=== PATIENT | male | born 1935 | race Caucasian/White ===

== ENCOUNTER 2018-08-28 04:21 | Emergency (ER) | payer MEDICARE, BC ==
[2018-08-28 04:43] VITALS: RESP 16
[2018-08-28] MEDS ORDERED: ALBUTEROL NEBULIZED 2.5 MG/3 ML INHALATION STA (05:33)
[2018-08-28 05:34] LABS: Basophils % (A) 0 %; Eosinophils # (A) 0.4 k/uL (0-0.7); Eosinophils % (A) 7 %; HCT 38.6 % (39.0-53.0); HGB 12.8 gm/dL (13.0-17.5); Lymphocytes # (A) 1.2 k/uL (1.0-4.8); Lymphocytes % (A) 21 %; MCH 29.6 pg (25.0-35.0); MCHC 33.3 g/dL (31.0-37.0); Mean Platelet Volume 7.4; Monocytes # (A) 0.4 k/uL (0-1.0); Monocytes % (A) 7 %; Neutrophils # (A) 3.4 k/uL (1.3-7.7); Neutrophils % (A) 62 %; Platelet Count 164 k/uL (150-450); RBC 4.33 m/uL (4.30-5.90); RDW 15.4 % (11.5-15.5); WBC 5.5 k/uL (3.8-10.6)
[2018-08-28 05:44] LABS: INR 1.4 (<1.2); Partial Thromboplastin Time 26.8 sec (22.0-30.0); Prothrombin Time 14.1 sec (9.0-12.0)
[2018-08-28 05:55] LABS: Anion Gap 9 mmol/L; Blood Urea Nitrogen 11 mg/dL (9-20); Calcium 9.3 mg/dL (8.4-10.2); Carbon Dioxide 23 mmol/L (22-30); Chloride 103 mmol/L (98-107); Glucose 104 mg/dL (74-99); Potassium 4.3 mmol/L (3.5-5.1); Sodium 135 mmol/L (137-145)
--- NOTE | 2018-08-28 06:04 | XR ---
EXAMINATION TYPE: XR chest 2V DATE OF EXAM: 08/28/2018 COMPARISON: NONE HISTORY: Cough TECHNIQUE: Frontal and lateral views of the chest are obtained. FINDINGS: There is elevated right diaphragm. There is coarse linear density in the right midlung. Th oracic aorta is atheromatous. There is no heart failure. There is no pleural effusion. IMPRESSION: There is some atelectasis and scarring in the right upper lobe. No heart failure.
--- NOTE | 2018-08-28 06:35 | ED ---
ENT HPI - General Chief complaint: ENT Stated complaint: URI, coughing up blood Time Seen by Provider: 08/28/18 04:53 Source: patient Mode of arrival: ambulatory Limitations: no limitations - History of Present Illness MD complaint: epistaxis -: minutes(s) Location: nose Severity: mild Consistency: now resolved Improves with: none Worsens with: none Context-Epistaxis: warfarin use - Related Data Previous Rx's Medication Instructions Recorded Albuterol Inhaler [Ventolin Hfa 1 - 2 puff INHALATION Q6HR PRN #1 08/28/18 Inhaler] inhaler Allergies Allergy/AdvReac Type Severity Reaction Status Date / Time Sulfa (Sulfonamide Allergy Rash/Hives Verified 08/28/18 05:00 Antibiotics) Review of Systems ROS Statement: Those systems with pertinent positive or pertinent negative responses have been documented in the HPI. ROS Other: All systems not noted in ROS Statement are negative. Constitutional: Denies: fever, chills, weakness Respiratory: Reports: cough, wheezes. Denies: dyspnea, hemoptysis Cardiovascular: Denies: chest pain, palpitations, dyspnea on exertion Gastrointestinal: Denies: abdominal pain, vomiting, diarrhea Genitourinary: Denies: dysuria Musculoskeletal: Denies: back pain Skin: Denies: rash Neurological: Denies: headache Past Medical History Past Medical History: Atrial Fibrillation, Hyperlipidemia, Hypertension Past Surgical History: Orthopedic Surgery Smoking Status: Never smoker Past Alcohol Use History: None Reported Past Drug Use History: None Reported General Exam Limitations: no limitations General appearance: alert, in no apparent distress Head exam: Present: atraumatic, normocephalic Eye exam: Present: normal appearance. Absent: scleral icterus, conjunctival injection Respiratory exam: Present: wheezes. Absent: respiratory distress, rales, rhonchi, stridor Cardiovascular Exam: Present: regular rate, normal rhythm, normal heart sounds. Absent: systolic murmur, diastolic murmur, rubs, gallop GI/Abdominal exam: Present: soft. Absent: distended, tenderness, guarding, rebound, mass Extremities exam: Present: normal inspection, normal capillary refill. Absent: pedal edema, calf tenderness Neurological exam: Present: alert Skin exam: Present: warm, dry, intact, normal color. Absent: rash Course Vital Signs 08/28/18 08/28/18 08/28/18 04:37 06:02 06:14 Temperature 97.5 F L Pulse Rate 56 L 64 60 Respiratory 16 Rate Blood Pressure 150/79 O2 Sat by Pulse 98 Oximetry 08/28/18 08/28/18 06:37 06:42 Temperature 97.7 F Pulse Rate 56 L 56 L Respiratory 16 16 Rate Blood Pressure 156/89 O2 Sat by Pulse 100 97 Oximetry Medical Decision Making - Lab Data Result diagrams: 08/28/18 05:07 08/28/18 05:07 Lab Results 08/28/18 08/28/18 08/28/18 Range/Units 05:07 05:07 05:07 WBC 5.5 (3.8-10.6) k/uL RBC 4.33 (4.30-5.90) m/uL Hgb 12.8 L (13.0-17.5) gm/dL Hct 38.6 L (39.0-53.0) % MCV 89.0 (80.0-100.0) fL MCH 29.6 (25.0-35.0) pg MCHC 33.3 (31.0-37.0) g/dL RDW 15.4 (11.5-15.5) % Plt Count 164 (150-450) k/uL Neutrophils % 62 % Lymphocytes % 21 % Monocytes % 7 % Eosinophils % 7 % Basophils % 0 % Neutrophils # 3.4 (1.3-7.7) k/uL Lymphocytes # 1.2 (1.0-4.8) k/uL Monocytes # 0.4 (0-1.0) k/uL Eosinophils # 0.4 (0-0.7) k/uL Basophils # 0.0 (0-0.2) k/uL PT 14.1 H (9.0-12.0) sec INR 1.4 H (<1.2) APTT 26.8 (22.0-30.0) sec Sodium 135 L (137-145) mmol/L Potassium 4.3 (3.5-5.1) mmol/L Chloride 103 (98-107) mmol/L Carbon Dioxide 23 (22-30) mmol/L Anion Gap 9 mmol/L BUN 11 (9-20) mg/dL Creatinine 0.76 (0.66-1.25) mg/dL Est GFR (CKD-EPI)AfAm >90 (>60 ml/min/1.73 sqM) Est GFR (CKD-EPI)NonAf 85 (>60 ml/min/1.73 sqM) Glucose 104 H (74-99) mg/dL Calcium 9.3 (8.4-10.2) mg/dL NT-Pro-B Natriuret Pep pg/mL 08/28/18 Range/Units 05:07 WBC (3.8-10.6) k/uL RBC (4.30-5.90) m/uL Hgb (13.0-17.5) gm/dL Hct (39.0-53.0) % MCV (80.0-100.0) fL MCH (25.0-35.0) pg MCHC (31.0-37.0) g/dL RDW (11.5-15.5) % Plt Count (150-450) k/uL Neutrophils % % Lymphocytes % % Monocytes % % Eosinophils % % Basophils % % Neutrophils # (1.3-7.7) k/uL Lymphocytes # (1.0-4.8) k/uL Monocytes # (0-1.0) k/uL Eosinophils # (0-0.7) k/uL Basophils # (0-0.2) k/uL PT (9.0-12.0) sec INR (<1.2) APTT (22.0-30.0) sec Sodium (137-145) mmol/L Potassium (3.5-5.1) mmol/L Chloride (98-107) mmol/L Carbon Dioxide (22-30) mmol/L Anion Gap mmol/L BUN (9-20) mg/dL Creatinine (0.66-1.25) mg/dL Est GFR (CKD-EPI)AfAm (>60 ml/min/1.73 sqM) Est GFR (CKD-EPI)NonAf (>60 ml/min/1.73 sqM) Glucose (74-99) mg/dL Calcium (8.4-10.2) mg/dL NT-Pro-B Natriuret Pep 989 pg/mL Disposition Clinical Impression: Epistaxis, Bronchitis Disposition: HOME SELF-CARE Condition: Good Instructions: Nosebleed (ED), Acute Bronchitis (ED) Prescriptions: Albuterol Inhaler [Ventolin Hfa Inhaler] 1 - 2 puff INHALATION Q6HR PRN #1 inhaler PRN Reason: Wheezing Is patient prescribed a controlled substance at d/c from ED?: No Referrals: Norris Gaytan MD [Primary Care Provider] - 1-2 days Samy Macias DO [Doctor of Osteopathic Medicine] - 1-2 days
[2018-08-28 06:42] VITALS: PULSE 56; TEMP 97.7
[2018-08-28 06:43] VITALS: BP 156/89
== END 2018-08-28 07:08 | disposition home or self-care (01) ==
LOC: EC 04:21
DX: R04.2 Hemoptysis (principal); J40 Bronchitis, not specified as acute or chronic; I48.91 Unspecified atrial fibrillation; Z79.01 Long term (current) use of anticoagulants; Z88.2 Allergy status to sulfonamides
CPT/HCPCS: 36415; 71046; 80048; 83880; 85025; 85610; 85730; 94640; 99284

== ENCOUNTER → 2020-11-11 | Outpatient (CLI) | payer MEDICARE, BC ==
--- NOTE | 2020-11-11 18:57 | US ---
EXAMINATION TYPE: US kidneys/renal and bladder DATE OF EXAM: 11/11/2020 COMPARISON: NONE CLINICAL HISTORY: N28.1 Cyst of kidney, acquired. Pt states outside MRI showed possible right renal c yst EXAM MEASUREMENTS: Right Kidney: 11.7 x 5.8 x 5.5 cm Left Kidney: 11.8 x 4.9 x 5.6 cm Right Kidney: Cyst lateral= 2.6 x 2.2 x 2.2 cm, echogenic foci mid= 0.6 cm/ ?dilated renal pelvis vs. parapelvic cyst= 2.0 cm Left Kidney: Probable cyst lateral= 1.2 x 1.3 x 0.7cm/ echogenic foci mid= 0.7 cm/ ill-defined area s uperior pole= 3.0 x 2.7 x 2.8 cm ?lobulation vs. Mass Bladder: wnl Bilateral Jets seen: No IMPRESSION: 1. There is mild right hydronephrosis with 6 mm right renal calculus. 2.6 cm right renal cyst. 2. There is a 7 mm left renal cyst with ill-defined areas along the upper pole measuring [address] scan to exclude neoplasm.
== END ==
LOC: RADUSWWP 15:32
PROVIDERS: ATTEND Internal Medicine
DX: N13.2 Hydronephrosis with renal and ureteral calculous obstruction (principal); N28.1 Cyst of kidney, acquired
CPT/HCPCS: 76770

== ENCOUNTER → 2020-11-29 | Outpatient (CLI) | payer MEDICARE, BC ==
--- NOTE | 2020-11-29 14:46 | CT ---
EXAMINATION TYPE: CT abdomen pelvis wo con DATE OF EXAM: 11/29/2020 COMPARISON: Ultrasound 11/11/2020 INDICATION: Kidney disorder DLP: 419.7 mGycm, Automated exposure control for dose reduction was used. CONTRAST: None Study performed without Oral Contrast TECHNIQUE: Axial images were obtained from above the diaphragm to the pubic rami in the axial plane a t 5 mm thick sections. Reconstructed images are reviewed on the computer in the coronal plane. FINDINGS: Limited CT sections are obtained the lung bases. The lung bases are clear. Dense calcifications thr ough the coronary vessels visualized. CT ABDOMEN: Liver: Normal Spleen: Normal Pancreas: Normal Adrenal glands: The adrenal glands are normal. Gallbladder: Normal Kidneys: No masses are evident. No suspicious mass in the left upper pole correspond ultrasound findi ngs is evident. No hydronephrosis is present. There is an extrarenal pelvis on the right. Couple of cortical renal cysts are present. Delayed images were obtained through the kidneys, which remain unr emarkable. Aorta: Vascular calcification is within the aorta. Inferior vena cava: Normal. CT PELVIS: Loops of bowel within the abdomen and pelvis are normal. There are loops of bowel which are incom pletely distended or lack oral contrast limiting their evaluation. Appendix: Normal as visualized. Urinary bladder: Normal Genitourinary structures: Prostate is very prominent. Osseous structures: No suspicious lytic or sclerotic lesions. IMPRESSIONS: 1. Couple of cortical renal cysts present bilaterally. No suspicious renal masses 2. Very prominent prostate.
== END | disposition home or self-care (01) ==
LOC: RADCTMAIN 10:39
PROVIDERS: ATTEND Internal Medicine
DX: N28.1 Cyst of kidney, acquired (principal)
CPT/HCPCS: 74176

== ENCOUNTER → 2021-03-21 | Outpatient (CLI) | payer MEDICARE, BC ==
[2021-03-21 13:48] LABS: Basophils % (A) 1 %; Eosinophils # (A) 0.2 k/uL (0-0.7); Eosinophils % (A) 3 %; HGB 8.9 gm/dL (13.0-17.5); Hypochromasia Marked; Lymphocytes % (A) 18 %; MCH 26.4 pg (25.0-35.0); MCHC 30.6 g/dL (31.0-37.0); MCV 86.4 fL (80.0-100.0); Mean Platelet Volume 7.9; Monocytes # (A) 0.4 k/uL (0-1.0); Monocytes % (A) 7 %; Neutrophils # (A) 3.5 k/uL (1.3-7.7); Neutrophils % (A) 67 %; Platelet Count 240 k/uL (150-450); RBC 3.36 m/uL (4.30-5.90); RDW 15.1 % (11.5-15.5); WBC 5.2 k/uL (3.8-10.6)
[2021-03-22 02:10] LABS: % Iron Saturation 3.63 (15.00-50.00); Ferritin 9.6 ng/mL (22.0-322.0); Folate, Serum >24.0 ng/mL; Iron 16 ug/dL (65-175); Total Iron Binding Capacity 441 ug/dL (228-460)
== END | disposition home or self-care (01) ==
LOC: LABWHC1 12:30
PROVIDERS: ATTEND Internal Medicine
DX: D64.9 Anemia, unspecified (principal)
CPT/HCPCS: 36415; 82607; 82728; 82746; 83540; 83550; 85025

== ENCOUNTER 2021-04-14 09:44 | Day surgery (SDC) | payer MEDICARE, BC ==
[2021-04-12 10:37] VITALS: BMI 24.3
[~2021-04-14 09:44] MED LIST: LACTATED RINGERS 1,000 ML IV SCH; LIDOCAINE 1% (10MG/ML) FOR IV START INTRADERMA PRN
[2021-04-14 10:09] VITALS: TEMP 97.9
[2021-04-14] MEDS ORDERED: LIDOCAINE 1% INJ 10MG/ML (20 ML MDV) ONE (11:33)
[2021-04-14] MEDS ORDERED: PROPOFOL 10 MG/ML 20 ML VIAL IV ONE (11:33)
--- NOTE | 2021-04-14 11:58 | P.PCN ---
Date of Procedure: 04/14/21 Procedure(s) Performed: Brief history: Patient is a pleasant 85-year-old white male scheduled for an elective upper endoscopy as well as colonoscopy as a part of evaluation of iron deficiency anemia. He has history of A. fib and cardiac Coumadin which is on hold for the last 6 days. Last hemoglobin was 8.9 g/dL he was also noted to have a Hemoccult-positive stool. Last colonoscopy was 10 years ago. Procedure performed: Esophagogastroduodenoscopy with biopsy Colonoscopy with biopsy and tattooing with Fiona ink Preoperative diagnosis: Iron deficiency anemia and Hemoccult-positive stool Anest[place]: [facility] [place] Procedure: After informed consent was obtained from the patient was brought into the endoscopy unit and IV sedation was administered by anesthesia under continuous monitoring. Initially upper endoscopy was done. The Olympus GF 160 video endoscope was inserted inserted into the mouth and esophagus intubated without any difficulty and was gradually advanced into the stomach and duodenum and carefully examined. The bulb and second part of the duodenum appeared normal. Biopsies were done from the duodenum to rule out celiac disease The scope was then withdrawn into the stomach adequately insufflated with air and upon careful examination the antrum had mild gastritis and biopsies were done from this area. Thed body, cardia and fundus appeared normal. The scope was then withdrawn into the esophagus. The GE junction was located at 40 cm to the incisors. It appeared regular with superficial erosions consistent with LA grade B reflux esophagitis Rest of the esophagus appeared normal. Patient tolerated the procedure well. At this time the patient continued to remain sedation. Initial digital rectal examination was normal. Olympus CF 160 video colonoscope was then inserted into the rectum and gradually advanced to the cecum without any difficulty. Careful examination was performed as the scope was gradually being withdrawn. The prep was excellent. The cecum, ascending colon, appeared normal. In the hepatic flexure there was a 3 cm broad-based polypoid mass suspicious for neoplasm and multiple biopsies were obtained from this area. Following this tattooing was performed with Fiona ink. Mucosa of the transverse colon, descending colon, sigmoid colon and rectum appeared normal. Retroflexion was performed in the rectum and small internal hemorrhoids were noted. Scattered sigmoid diverticula seen. Patient tolerated the procedure well. Impression: 1. Upper endoscopy revealed mild antral gastritis and LA grade A reflux esophagitis 2. Colonoscopy revealed 3 cm broad-based polypoid mass in the hepatic flexure status post multiple biopsies followed by tattooing with Fiona ink. Small internal hemorrhoids and scattered sigmoid diverticulosis seen. Recommendations: Findings of this examination were discussed with the patient as well as his family. He was advised to follow with the biopsy results. he will resume Coumadin today. He was advised to follow with the biopsy results. He'll be seen in office in 4-5 days. The meantime he'll be scheduled for a CT of the abdomen and pelvis before obtaining surgical consultation.
[2021-04-14 12:04] VITALS: RESP 16
[2021-04-14 12:17] VITALS: BP 152/84; PULSE 73
== END 2021-04-14 12:15 | disposition home or self-care (01) ==
LOC: ORWHC2ENDO 09:44
PROVIDERS: ATTEND Internal Medicine Gastroenterology
DX: K29.50 Unspecified chronic gastritis without bleeding (principal); K21.00 Gastro-esophageal reflux disease with esophagitis, without bleeding; K64.8 Other hemorrhoids; K57.30 Diverticulosis of large intestine without perforation or abscess without bleeding; I48.91 Unspecified atrial fibrillation; I25.10 Atherosclerotic heart disease of native coronary artery without angina pectoris; I25.2 Old myocardial infarction; E78.5 Hyperlipidemia, unspecified; Z95.818 Presence of other cardiac implants and grafts
CPT/HCPCS: 45380; 43239; 44404; 88305; J2001; J2704

== ENCOUNTER → 2021-04-17 | Outpatient (CLI) | payer MEDICARE, BC ==
[2021-04-17 13:37] LABS: African American GFR (CKD) >90 (>60 ml/min/1.73 sqM); Blood Urea Nitrogen 6 mg/dL (9-20); Non-African American GFR(CKD) 85 (>60 ml/min/1.73 sqM)
--- NOTE | 2021-04-17 15:30 | CT ---
EXAMINATION TYPE: CT ChestAbdPelvis w con DATE OF EXAM: 04/17/2021 COMPARISON: 11/29/2020 HISTORY: Abnormal colonscopy. CT DLP: 728.6 mGycm Automated exposure control for dose reduction was used. CONTRAST: CT scan of the chest, abdomen and pelvis is performed with Oral Contrast and with IV Contrast, patien t injected with 100ml mL of Isovue 300. FINDINGS: LUNGS: There is a 3 mm right apical pleural-based nodule likely benign. Subsegmental changes are seen involving the lungs and there is 3 vague 3 mm nodules in the anterior segment right upper lobe most likely post.. Additional areas of subsegmental consolidation are seen bilaterally with a localized ar ea of bronchiectasis involving the anterior segment of the right upper lobe. No sizable pleural effus ion or pneumothorax. MEDIASTINUM: Heart is enlarged and there is dense coronary artery calcification. Shotty adenopathy in the mediastinum and hilum bilaterally with no pathologic adenopathy. Aorta of normal caliber. OTHER: No additional significant abnormality is seen. LIVER/GB: Stable hepatic calcifications may be vascular. PANCREAS: No significant abnormality is seen. SPLEEN: No significant abnormality is seen. ADRENALS: No significant abnormality is seen. KIDNEYS: Multiple hypodensities within the kidneys bilaterally likely related to simple cysts. Extrar enal pelvis noted bilaterally stable from prior exam. BOWEL: Changes of diverticulosis. ASSESSMENT: Somewhat limited due to lack of significant oral contrast. There is soft tissue fullness involving the right colon proximal to the hepatic flexure. LYMPH NODES: No greater than 1 cm abdominal or pelvic lymph nodes are appreciated. OSSEOUS STRUCTURES: Hypertrophic and degenerative changes of the spine severe multilevel degenerative disc disease and scoliotic curvature. OTHER: Prostate is markedly enlarged. Suggestion of previous hernia repair surgery involving the left inguinal canal. IMPRESSION: 1. Soft tissue fullness involving the right colon correlate for colonic neoplasm. No pathologic adeno bubba. 2. Bilateral suspected renal cysts. 3. Multiple sub-5 mm nodules within the lungs are most likely postinflammatory. Subsegmental areas of consolidation most typical of atelectasis
== END | disposition home or self-care (01) ==
LOC: RADCTMAIN 11:32
PROVIDERS: ATTEND Internal Medicine Gastroenterology
DX: R91.8 Other nonspecific abnormal finding of lung field (principal); J98.4 Other disorders of lung; R93.3 Abnormal findings on diagnostic imaging of other parts of digestive tract
CPT/HCPCS: 82565; 84520; 71260; 74177; 36415; Q9967

== ENCOUNTER → 2021-04-25 | Outpatient (CLI) | payer MEDICARE, BC ==
[2021-04-25 12:39] LABS: Anisocytosis Slight; HGB 10.8 gm/dL (13.0-17.5); Hypochromasia Marked; MCHC 31.6 g/dL (31.0-37.0); MCV 88.5 fL (80.0-100.0); Platelet Count 212 k/uL (150-450); RBC 3.84 m/uL (4.30-5.90); RDW 18.4 % (11.5-15.5); WBC 6.1 k/uL (3.8-10.6)
[2021-04-25 12:42] LABS: Potassium 4.4 mmol/L (3.5-5.1)
== END | disposition home or self-care (01) ==
LOC: LABPAT 11:34
PROVIDERS: ATTEND Surgery
DX: Z01.812 Encounter for preprocedural laboratory examination (principal); C18.9 Malignant neoplasm of colon, unspecified
CPT/HCPCS: 36415; 80051; 85027

== ENCOUNTER 2021-05-01 09:50 | Inpatient (IN) | payer MEDICARE, BC ==
[2021-04-26 10:41] VITALS: BMI 24.3
--- NOTE | 2021-05-01 08:50 | P.HPADDEND ---
H&P Addendum H&P Addendum Date: 05/01/21 Patient scheduled today for elective da Mauricio assisted laparoscopic right colectomy, possible open. 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 He is cleared for surgery with moderate risk. Discussed open versus laparoscopic approaches and the anticipated duration of surgery along with the insufflation required with laparoscopy and either approach was felt to be reasonable for his elementary school librarian.
[~2021-05-01 09:50] MED LIST changes: +ACETAMINOPHEN TAB 500 MG TAB PO PRN; +HEPARIN SODIUM,PORCINE/PF 5,000 UNIT/0.5 ML SYRINGE SQ PRN; -LACTATED RINGERS 1,000 ML IV SCH; -LIDOCAINE 1% (10MG/ML) FOR IV START INTRADERMA PRN; +ONDANSETRON 4 MG/2 ML VIAL IVP ONE; +metroNIDAZOLE-NS PMX 500 MG in SALINE 1 100ML.BAG IVPB PRN
[2021-05-01] MEDS: LACTATED RINGERS 1,000 ML IV SCH ×2 (10:45→23:55)
[2021-05-01] MEDS ORDERED: ALVIMOPAN 12 MG CAPSULE PO ONE (10:45)
[2021-05-01] MEDS ORDERED: DEXAMETHASONE SOD PHOSPHATE 4 MG/ML 1 ML VIAL IV ONE (10:50)
[2021-05-01 11:05] LABS: INR 1.2 (<1.2); Prothrombin Time 12.2 sec (9.0-12.0)
[2021-05-01] MEDS ORDERED: GLYCOPYRROLATE 0.2 MG/ML 2 ML VIAL ONE (12:32)
[2021-05-01] MEDS ORDERED: PROPOFOL 10 MG/ML 20 ML VIAL IV ONE (12:32)
[2021-05-01] MEDS ORDERED: fentaNYL (PF) 50 MCG/ML 2 ML AMP ONE (12:32)
[2021-05-01] MEDS ORDERED: NEOSTIGMINE 1 MG/ML 10 ML VIAL ONE (12:32)
[2021-05-01] MEDS ORDERED: SUCCINYLCHOLINE CHLORIDE 100 MG/5 ML SYR IV ONE (12:32)
[2021-05-01] MEDS ORDERED: LIDOCAINE 1% INJ 10MG/ML (20 ML MDV) ONE (12:32)
[2021-05-01] MEDS ORDERED: ROCURONIUM 10 MG/ML (5 ML VIAL) IV ONE (12:32)
[2021-05-01] MEDS ORDERED: ePHEDrine SULFATE/0.9% NACL/PF 50 MG/5 ML SYRINGE IV ONE (12:32)
[2021-05-01] MEDS ORDERED: LIDOCAINE 1% INJ 10MG/ML (20 ML MDV) SQ ONE (13:25)
[2021-05-01] MEDS ORDERED: LACTATED RINGERS 1,000 ML IV ONE ×2 (15:03→16:27)
[2021-05-01] MEDS ORDERED: BENZOCAINE/MENTHOL LOZENG 1 EACH LOZENGE MUCOUS MEM PRN (16:40)
[2021-05-01] MEDS ORDERED: ONDANSETRON 4 MG/2 ML VIAL IVP PRN (16:40)
--- NOTE | 2021-05-01 16:45 | P.OP ---
Date of Procedure: 05/01/21 Procedure(s) Performed: PREOPERATIVE DIAGNOSIS: Right-sided colon cancer POSTOPERATIVE DIAGNOSIS: Same PROCEDURE: Laparoscopic da Mauricio assisted right colectomy with intracorporeal anastomosis SURGEON: Stan EBL: Minimal see anesthesia records ANESTHESIA: General COMPLICATIONS: None OPERATIVE PROCEDURE: Patient was placed on the operating table in the supine position. The patient was placed under general anesthesia. A Hernández catheter was placed. The patient's arms were tucked. The abdomen was prepped and draped in usual sterile fashion. A small Pfannenstiel incision was created in the midline. The subcutaneous fat and fascia were divided horizontally using electrocautery. The rectus muscle was divided vertically using blunt dissection and entrance into the peritoneal cavity occurred. The mini Nimesh lap cap was placed. Through the GelPort adapter of the Nimesh a 12 mm robotic port and a 12 mm assist port were placed. Full insufflation took place to 15 mmHg. 3 additional trochars were placed for the robot a 12 mm in the left subcostal a 8 mm in the left lateral infraumbilical and a 8 mm trocar in the left lower quadrant location. A trade sales assistant port in the left lateral abdomen was placed and this was a 5 mm trocar. The patient was placed in Trendelenburg right side up. The liver was free of any evidence of distant metastasis. The retroperitoneum was evaluated. The ileocolic pedicle was identified by retracting the cecum anteriorly and laterally. Careful dissection using both blunt dissection and cautery took place in the retroperitoneum. The duodenum was quickly identified and this was protected throughout the remainder of the procedure. Our dissection took place laterally and circumferentially around the ileocolic pedicle. The ileocolic pedicle was divided using a 60 white load stapler. Dissection in the retroperitoneum and took place bluntly. Once we reached the lateral abdomen from our retroperitoneal approach the ileum cecum and ascending colon were mobilized by incising the lateral peritoneal attachments. We entered into a retroperitoneal dissection plane. The ureter was visualized and protected throughout the case. The hepatic flexure was mobilized in a similar fashion although in that location we started using the vessel sealer. The gastrocolic omentum was dissected away from the proximal transverse colon. Once we were able to visualize the transverse colon and hepatic flexure well the transverse colon was divided using a blue load 60 stapler. The mesentery of the transverse colon was then divided using the vessel sealer as well. The small bowel was divided as well using a robotic white load stapler. At this point our specimen was free and placed in the left upper quadrant. The terminal ileum was brought in an isoperistaltic manner adjacent to the transverse colon. Using the scissors an enterotomy and colotomy took place. At that time stapler was fired along the antimesenteric border of both the small bowel and the colon. A single firing of the 60 mm blue load stapler was utilized. We had an adequate opening between the small bowel and colon at that point. The defect was closed transversely using a running 3-0 absorbable V lock suture using a connel technique. Once the defect was closed I ran the closure site once again using a running imbricating seromuscular technique with the same stitch. I then placed 3-0 GI silk sutures acted as stay sutures proximally and distally. The specimen was grasped through the Nmiesh assist port and the pneumoperitoneum was evacuated. The specimen was able to be retrieved quite easily. The fascia was closed using a running 0 Vicryl suture. The 12 mm trocar site fascia was closed using a [id number] 0 Vicryl suture. The subcutaneous tissues were irrigated with saline. The subcutaneous tissues were closed using 3-0 Vicryl sutures. The skin at all locations were closed using 4-0 Monocryl sutures. Dermabond was then utilized. Sterile dressings were applied. DISPOSITION: Stable to recovery room
[2021-05-01] MEDS: HYDROmorphone 0.5 MG/0.5 ML SYRINGE IVP PRN ×2 (17:05→17:12)
[2021-05-01] MEDS: FAMOTIDINE 20 MG/2 ML VIAL IV SCH (20:14)
[2021-05-01] MEDS: HYDROmorphone 1 MG/ML 1 ML SYRINGE IVP PRN (20:16)
[2021-05-01] MEDS: D5-0.45% NACL WITH KCL 20MEQ/L 1,000 ML IV SCH ×2 (21:44→23:52)
[2021-05-01] MEDS: HEPARIN SODIUM,PORCINE/PF 5,000 UNIT/0.5 ML SYRINGE SQ SCH (23:52)
--- NOTE | 2021-05-01 23:58 | P.CONS ---
History of Present Illness - Reason for Consult Consult date: 05/01/21 - History of Present Illness The patient is an 85-year-old male with a recently diagnosed colon cancer involving the hepatic flexure, A. fib on Coumadin, hypertension, and hyperlipidemia who was admitted to the hospital for planned robotic right sided colectomy. The patient underwent the procedure with no immediate postoperative complications and was seen on the surgical unit. He reported ongoing 3 out of 10 pain at the surgical sites. He denied any additional complaints. He denied experiencing nausea, vomiting. Also denied chest pain, shortness of breath, cough, fever, chills. Denied sore throat. He reports compliance with medication at home. Review of systems: Pertinent positives and negatives as discussed in HPI, a complete review of systems was performed and all other systems are negative. Physical examination: General: non toxic, no distress, appears at stated age, normal weight Derm: no unusual rashes/lesions no unusual ecchymoses, warm, dry Head: atraumatic, normocephalic, symmetric Eyes: EOMI, no lid lag, anicteric sclera, pupils equal round reactive to light ENT: Nose and ears atraumatic, no thrush, no pharyngeal erythema Neck: No thyromegaly, no cervical lymphadenopathy, trachea midline, supple Mouth: no lip lesion, mucus membranes moist Cardiovascular: S1S2 reg, no murmur, positive posterior tibial pulse bilateral, no edema, capillary refill less than 2 seconds Lungs: CTA bilateral, no rhonchi, no rales , no accessory muscle use Abdominal: soft, multiple 4-5 cm incisions noted without bleeding or drainage, no guarding Ext: no gross muscle atrophy, muscle strength 5 out of 5 in all 4 extremities grossly, no contractures, Neuro: CN II-XI grossly intact, light touch intact all 4 extremities, finger to nose within normal limits, Psych: Alert, oriented, appropriate affect Assessment/plan A. fib on Coumadin -Defer resumption of anticoagulation to surgery service Chronic conditions: Hypertension, hyperlipidemia -Continue the remaining home medications Recently diagnosed colon cancer status post right colectomy -Defer management including pain control to the primary surgery service We appreciate this opportunity to be involved in this patient's care. We will follow the patient with you. For any further questions, please not hesitate to contact the sound inpatient team. Past Medical History Past Medical History: Atrial Fibrillation, Cancer, Hearing Disorder / Deafness, Hyperlipidemia, Hypertension, Myocardial Infarction ([place]) Additional Past Medical History / Comment(s): Bilateral hearing aids. colon cancer Last Myocardial Infarction Date:: 06/2004 History of Any Multi-Drug Resistant Organisms: None Reported Past Surgical History: Heart Catheterization With Stent, Hernia Repair Additional Past Surgical History / Comment(s): Cardiac Stent X1 06/2004. Past Anesthesia/Blood Transfusion Reactions: No Reported Reaction Date of Last Stent Placement:: 2003 Past Psychological History: No Psychological Hx Reported Smoking Status: Never smoker Past Alcohol Use History: Occasional Past Drug Use History: None Reported - Past Family History Mother Family Medical History: No Reported History Additional Family Medical History / Comment(s): Not pertinent to current hospitalization due to advanced age Medications and Allergies Home Medications Medication Instructions Recorded Confirmed Type Alfuzosin HCl [Alfuzosin HCl ER] 10 mg PO HS 04/12/21 04/26/21 History Ezetimibe/Simvastatin 0.5 tab PO HS 04/12/21 04/26/21 History [Ezetimibe/Simvastatin 10-40 mg] Famotidine [Pepcid AC] 10 mg PO AC-BRKFST 04/12/21 04/26/21 History Losartan Potassium 50 mg PO QAM 04/12/21 04/26/21 History Multivitamin/Iron/Folic Acid 1 each PO DAILY 04/12/21 04/26/21 History [Centrum Complete Multivit Tab] Warfarin [Coumadin] 5 mg PO HS 04/12/21 04/26/21 History amLODIPine BESYLATE 5 mg PO HS 04/12/21 04/26/21 History polyethylene glycoL 3350 [Miralax] 17 gm PO HS 04/12/21 04/26/21 History traZODone HCL 50 mg PO HS 04/12/21 04/26/21 History Ferrous Sulfate [Feosol] 325 mg PO DAILY 04/26/21 04/26/21 History Allergies Allergy/AdvReac Type Severity Reaction Status Date / Time Sulfa (Sulfonamide Allergy Rash/Hives Verified 04/26/21 10:26 Antibiotics) Physical Exam Vitals: Vital Signs Temp Pulse Pulse Pulse Resp BP BP 05/01/21 19:30 63 146/53 05/01/21 19:15 69 134/64 05/01/21 19:00 67 136/65 05/01/21 18:45 69 138/55 05/01/21 18:30 67 134/59 05/01/21 18:15 63 140/55 05/01/21 18:00 71 145/57 05/01/21 17:45 97.7 F 70 17 147/62 05/01/21 17:25 59 L 16 141/57 05/01/21 17:10 64 16 146/65 05/01/21 16:55 56 L 16 152/69 05/01/21 16:41 97.9 F 75 14 166/72 05/01/21 10:42 97.8 F 58 L 20 155/64 Pulse Ox 05/01/21 19:30 05/01/21 19:15 05/01/21 19:00 05/01/21 18:45 05/01/21 18:30 05/01/21 18:15 05/01/21 18:00 92 L 05/01/21 17:45 92 L 05/01/21 17:25 96 05/01/21 17:10 96 05/01/21 16:55 99 05/01/21 16:41 99 05/01/21 10:42 98 Intake and Output 05/01/21 05/01/21 05/02/21 14:59 22:59 06:59 Intake Total 850 1300 Output Total 420 Balance 850 880 Intake: IV 850 1300 Output: Urine 400 Estimated Blood Loss 20 Other: Weight 75.1 kg 75.1 kg Results Labs: Abnormal Lab Results - Last 24 Hours (Table) 05/01/21 Range/Units 10:39 PT 12.2 H (9.0-12.0) sec INR 1.2 H (<1.2)
[2021-05-02] MEDS: D5-0.45% NACL WITH KCL 20MEQ/L 1,000 ML IV SCH ×2 (06:02→15:48)
[2021-05-02] MEDS: HYDROcodone/APAP 5-325MG 1 EACH TAB PO PRN (06:05)
[2021-05-02] MEDS: HEPARIN SODIUM,PORCINE/PF 5,000 UNIT/0.5 ML SYRINGE SQ SCH ×2 (07:41→15:48)
[2021-05-02] MEDS: ALVIMOPAN 12 MG CAPSULE PO SCH ×2 (07:41→22:56)
[2021-05-02] MEDS: LOSARTAN 50 MG TAB PO SCH (07:42)
[2021-05-02] MEDS: FAMOTIDINE 20 MG/2 ML VIAL IV SCH ×2 (07:42→22:57)
[2021-05-02 11:07] LABS: Basophils # (A) 0.01 X 10*3/uL (0.00-0.10); Basophils % (A) 0.1 %; Eosinophils # (A) 0 X 10*3/uL (0.04-0.35); Eosinophils % (A) 0 %; HCT 31.4 % (39.6-50.0); HGB 9.2 g/dL (13.0-17.0); Lymphocytes % (A) 5.1 %; MCH 25.7 pg (27.0-32.0); MCHC 29.3 g/dL (32.0-37.0); MCV 87.7 fL (80.0-97.0); Mean Platelet Volume 10.4 fL (9.5-12.2); Monocytes # (A) 0.87 X 10*3/uL (0.20-1.00); Monocytes % (A) 6.3 %; Neutrophils # (A) 12.15 X 10*3/uL (1.80-7.70); Neutrophils % (A) 87.8 %; Platelet Count 212 X 10*3/uL (140-440); RBC 3.58 X 10*6/uL (4.40-5.60); RDW 19.8 % (11.5-14.5); WBC 13.82 X 10*3/uL (4.50-10.00)
[2021-05-02] MEDS: HYDROmorphone 1 MG/ML 1 ML SYRINGE IVP PRN (11:54)
--- NOTE | 2021-05-02 12:04 | P.PN ---
Subjective Progress Note Date: 05/02/21 Principal diagnosis: Right-sided colon cancer Patient doing well today. Out of bed into the chair. Mild pain and bloating. No nausea. No bowel function yet. Labs noted. Objective - Vital Signs Vital signs: Vital Signs Temp 97.7 F 05/02/21 07:11 Pulse 58 L 05/02/21 07:11 Resp 18 05/02/21 07:11 BP 141/75 05/02/21 07:11 Pulse Ox 93 L 05/02/21 07:11 Intake & Output 05/01/21 05/02/21 05/02/21 18:59 06:59 18:59 Intake Total 2350 Output Total 420 600 Balance 1930 -600 Weight 75.1 kg Intake: IV 2350 Output: Urine 400 600 Estimated Blood Loss 20 - Exam Abdomen: Soft, mild distention, incisions clean and dry, mild tenderness - Labs CBC & Chem 7: 05/02/21 07:25 Labs: Abnormal Lab Results - Last 24 Hours (Table) 05/02/21 Range/Units 07:25 WBC 13.82 H (4.50-10.00) X 10*3/uL RBC 3.58 L (4.40-5.60) X 10*6/uL Hgb 9.2 L (13.0-17.0) g/dL Hct 31.4 L (39.6-50.0) % MCH 25.7 L (27.0-32.0) pg MCHC 29.3 L (32.0-37.0) g/dL RDW 19.8 H (11.5-14.5) % Immature Gran # 0.09 H (0.00-0.04) X 10*3/uL Neutrophils # 12.15 H (1.80-7.70) X 10*3/uL Lymphocytes # 0.70 L (0.90-5.00) X 10*3/uL Eosinophils # 0 L (0.04-0.35) X 10*3/uL Assessment and Plan (1) Colon cancer Narrative/Plan: Continue clear liquids. Increase activity. Remove Hernández catheter. Current Visit: Yes Status: Acute Code(s): C18.9 - MALIGNANT NEOPLASM OF COLON, UNSPECIFIED SNOMED Code(s): 564902096
[2021-05-02 14:00] LABS: Anion Gap 9.5 mmol/L (4.00-12.00); Carbon Dioxide 23.5 mmol/L (21.6-31.8); Potassium 4.4 mmol/L (3.5-5.5)
[2021-05-02 14:01] LABS: African American GFR (CKD) 94.4 (60.0-200.0); Calcium 8.2 mg/dL (8.7-10.3); Non-African American GFR(CKD) 81.5 (60.0-200.0)
--- NOTE | 2021-05-02 16:23 | P.PN ---
<Malcolm Meyer - Last Filed: 05/02/21 16:12> Subjective Progress Note Date: 05/02/21 Hospital course: Patient is a very pleasant 85-year-old male with a past medical history of atr ial fibrillation on Coumadin, hypertension, hyperlipidemia, and recent diagnosis with colon cancer involving the hepatic flexure. He is currently admitted under Gen. surgery team with Dr. Pierce and underwent a DaVinci assisted laparoscopic right colectomy secondary to right-sided colon cancer on 05/01/21. We are consulted for continued medical management throughout hospitalization. Physical exam: Vital signs reviewed and stable. General: Nontoxic, no distress and appears stated age. Derm: Skin warm and dry, normal coloration for ethnicity. Head: Atraumatic, normocephalic and symmetric. Eyes: EOMs intact, no lid lag, and anicteric sclera Mouth: no lip lesions, mucus membranes moist Cardiovascular: Irregularly irregular rhythm with controlled rate. normal S1S2, no murmur, positive posterior tibial pulses bilaterally, and cap refill < 2 seconds. Lungs: Respirations even, regular, and unlabored on room air. Lungs CTA bilaterally, no rhonchi, no rales, no wheezing, and no accessory muscle usage. Abdominal: soft, nontender to palpation, no guarding, no appreciable organomegaly. Postsurgical incisions intact to abdomen, closed with adhesive. Incisions intact with no redness, swelling, or drainage noted. Bowel sounds hypoactive. Ext: ROM intact. No gross muscle atrophy, no edema, no contractures Neuro: Speech clear, face symmetrical and CN II-XII grossly intact with no noted focal neuro deficits Psych: Alert and oriented to person, place, time, and situation. Appropriate and pleasant affect. Assessment and Plan of Care: Status post Laparoscopic right colectomy secondary to right-sided colon cancer on 05/01/21 -Management per primary general surgery team, Dr. Hamilton. -Advancement of diet, postsurgical Pain management and clearance to resume Coumadin for anticoagulation to be managed by primary admitting general surgery team. -Encourage use of incentive spirometer 10-15 times hourly while awake. -Encourage deep breathing and splinting exercises. -SCDs for DVT prophylaxis pending clearance to resume Coumadin. Hypertension -Monitor vital signs and continue daily medication regimen. Chronic persistent Atrial fibrillation -Hold Coumadin until cleared to resume by general surgery status post bowel resection completed on 05/01/21. Thank you for allowing us to participate in the care of this pleasant patient. Do not hesitate to contact us with questions. Someone can be reached from the [facility] hospitalist group all hours of the day at [phone] or via perfect serve. Objective - Vital Signs Vital signs: Vital Signs Temp 97.6 F 05/02/21 14:13 Pulse 66 05/02/21 14:13 Resp 17 05/02/21 14:13 BP 147/63 05/02/21 14:13 Pulse Ox 95 05/02/21 14:13 Intake & Output 05/01/21 05/02/21 05/02/21 18:59 06:59 18:59 Intake Total 2350 Output Total 420 600 Balance 1930 -600 Weight 75.1 kg Intake: IV 2350 Output: Urine 400 600 Estimated Blood Loss 20 - Labs CBC & Chem 7: 05/02/21 07:25 05/02/21 07:25 Labs: Abnormal Lab Results - Last 24 Hours (Table) 05/02/21 05/02/21 Range/Units 07:25 07:25 WBC 13.82 H (4.50-10.00) X 10*3/uL RBC 3.58 L (4.40-5.60) X 10*6/uL Hgb 9.2 L (13.0-17.0) g/dL Hct 31.4 L (39.6-50.0) % MCH 25.7 L (27.0-32.0) pg MCHC 29.3 L (32.0-37.0) g/dL RDW 19.8 H (11.5-14.5) % Immature Gran # 0.09 H (0.00-0.04) X 10*3/uL Neutrophils # 12.15 H (1.80-7.70) X 10*3/uL Lymphocytes # 0.70 L (0.90-5.00) X 10*3/uL Eosinophils # 0 L (0.04-0.35) X 10*3/uL Sodium 132 L (135-145) mmol/L Glucose 185 H (70-110) mg/dL Calcium 8.2 L (8.7-10.3) mg/dL <Elijah,Le A - Last Filed: 05/02/21 22:16> Subjective Malcolm Meyer NP rendered care for this patient independently, reviewed the findings and plan as documented in the note above. I did not physically speak with or examine the patient on this date. Additional diagnosis: Acute on chronic anemia secondary to acute -No indication for transfusion at this time -Follow CBC Hyponatremia, mild - Continue to monitor closely with D5 0.45 with KCL for maintenance fluid. Objective - Vital Signs Vital signs: Vital Signs Temp 97.6 F 05/02/21 14:13 Pulse 66 05/02/21 14:13 Resp 17 05/02/21 14:13 BP 147/63 05/02/21 14:13 Pulse Ox 95 05/02/21 14:13 Intake & Output 05/02/21 05/02/21 05/03/21 06:59 18:59 06:59 Intake Total 1400 Output Total 600 Balance 800 Intake: Intake, IV Titration 1000 Amount D5-0.45% NaCl with KCl 250 20Meq/l 1,000 ml @ 125 mls/hr IV .Q8H [facility] Rx#: [id number] D5-0.45% NaCl with KCl 750 20Meq/l 1,000 ml @ 75 mls /hr IV .[id number] [facility] Rx#: [id number] Oral 400 Output: Urine 600 - Labs CBC & Chem 7: 05/02/21 07:25 05/02/21 07:25 Labs: Abnormal Lab Results - Last 24 Hours (Table) 05/02/21 05/02/21 Range/Units 07:25 07:25 WBC 13.82 H (4.50-10.00) X 10*3/uL RBC 3.58 L (4.40-5.60) X 10*6/uL Hgb 9.2 L (13.0-17.0) g/dL Hct 31.4 L (39.6-50.0) % MCH 25.7 L (27.0-32.0) pg MCHC 29.3 L (32.0-37.0) g/dL RDW 19.8 H (11.5-14.5) % Immature Gran # 0.09 H (0.00-0.04) X 10*3/uL Neutrophils # 12.15 H (1.80-7.70) X 10*3/uL Lymphocytes # 0.70 L (0.90-5.00) X 10*3/uL Eosinophils # 0 L (0.04-0.35) X 10*3/uL Sodium 132 L (135-145) mmol/L Glucose 185 H (70-110) mg/dL Calcium 8.2 L (8.7-10.3) mg/dL
[2021-05-02] MEDS: amLODIPine 5 MG TAB PO SCH (22:57)
[2021-05-02] MEDS: traZODone HCL 50 MG TAB PO SCH (22:57)
[2021-05-03] MEDS: HEPARIN SODIUM,PORCINE/PF 5,000 UNIT/0.5 ML SYRINGE SQ SCH ×3 (00:35→16:54)
[2021-05-03] MEDS: D5-0.45% NACL WITH KCL 20MEQ/L 1,000 ML IV SCH (04:45)
[2021-05-03] MEDS: LACTATED RINGERS 1,000 ML IV SCH (07:08)
[2021-05-03] MEDS: ALVIMOPAN 12 MG CAPSULE PO SCH ×2 (07:26→22:03)
[2021-05-03] MEDS: FAMOTIDINE 20 MG/2 ML VIAL IV SCH ×2 (07:26→22:04)
[2021-05-03] MEDS: LOSARTAN 50 MG TAB PO SCH (07:26)
[2021-05-03 09:08] LABS: Anisocytosis Slight; Basophils % (A) 0 %; Eosinophils # (A) 0.1 k/uL (0-0.7); Eosinophils % (A) 1 %; HCT 30.1 % (39.0-53.0); Hypochromasia Marked; Lymphocytes # (A) 0.8 k/uL (1.0-4.8); Lymphocytes % (A) 7 %; MCHC 30.3 g/dL (31.0-37.0); MCV 89.1 fL (80.0-100.0); Mean Platelet Volume 8.1; Monocytes # (A) 0.6 k/uL (0-1.0); Monocytes % (A) 5 %; Neutrophils # (A) 10.2 k/uL (1.3-7.7); Neutrophils % (A) 85 %; Platelet Count 207 k/uL (150-450); RBC 3.37 m/uL (4.30-5.90); RDW 18.5 % (11.5-15.5)
[2021-05-03 09:16] LABS: HGB 9.1 gm/dL (13.0-17.5)
[2021-05-03 09:25] LABS: African American GFR (CKD) >90 (>60 ml/min/1.73 sqM); Anion Gap 5 mmol/L; Blood Urea Nitrogen 8 mg/dL (9-20); Calcium 8.7 mg/dL (8.4-10.2); Carbon Dioxide 28 mmol/L (22-30); Chloride 100 mmol/L (98-107); Glucose 166 mg/dL (74-99); Non-African American GFR(CKD) 87 (>60 ml/min/1.73 sqM); Potassium 5.4 mmol/L (3.5-5.1); Sodium 133 mmol/L (137-145)
--- NOTE | 2021-05-03 11:15 | P.PN ---
<Dulce Johnson - Last Filed: 05/03/21 11:09> Subjective Progress Note Date: 05/03/21 CHIEF COMPLAINT: Right-sided colon cancer HISTORY OF PRESENT ILLNESS: Patient is status post Laparoscopic da Mauricio assisted right colectomy with intracorporeal anastomosis. Postop day #2. Patient reports that his abdominal pain is controlled. He did have some flatus yesterday. No bowel movement. He denies any nausea vomiting. He is complaining of urinary retention. He had straight cath this morning. Patient is feeling that he is having difficulty urinating again this morning. He does take medication for his prostate. This has not been restarted yet. Afebrile. Elevated blood pressure. WBC down from 13.82-12. Hemoglobin 9.1 sodium 133 potassium is 5.4 creatinine 0.69 PHYSICAL EXAM: VITAL SIGNS: Reviewed. GENERAL: Well-developed in no acute distress. HEENT: No sclera icterus. Extraocular movements grossly intact. Moist buccal mucosa. Head is atraumatic, normocephalic. ABDOMEN: Soft. Mildly distended. Incision sites clean dry and intact NEUROLOGIC: Alert and oriented. Cranial nerves II through XII grossly intact. ASSESSMENT: 1. Right-sided colon cancer status post Laparoscopic da Mauricio assisted right colectomy with intracorporeal anastomosis 2. Urinary retention 3. Hyperkalemia PLAN: -Urinary retention at restarting patient's Flomax -Hyperkalemia removing potassium from IV fluids. Changed fluid to D5 half- normal saline at 75 mL an hour -Repeat labs in a.m. -Encouraged patient to ambulate -Encouraged patient to use incentive spirometer -Having nursing staff repeat bladder scan. If evidence of urinary retention patient will have Hernández catheter reinserted Physician Web Marketing Specialist note has been reviewed by physician. Signing provider agrees with the documented findings, assessment, and plan of care. Objective - Vital Signs Vital signs: Vital Signs Temp 98.2 F 05/03/21 08:00 Pulse 94 05/03/21 08:00 Resp 20 05/03/21 08:00 BP 173/77 05/03/21 08:00 Pulse Ox 95 05/03/21 08:00 Intake & Output 05/02/21 05/03/21 05/03/21 18:59 06:59 18:59 Intake Total 1400 Output Total 600 1350 225 Balance 800 -1350 -225 Intake: Intake, IV Titration 1000 Amount D5-0.45% NaCl with KCl 250 20Meq/l 1,000 ml @ 125 mls/hr IV .Q8H [facility] Rx#: [id number] D5-0.45% NaCl with KCl 750 20Meq/l 1,000 ml @ 75 mls /hr IV .[id number] [facility] Rx#: [id number] Oral 400 Output: Urine 600 1350 225 Other: Voiding Method Urinal Urinal # Voids 2 - Labs CBC & Chem 7: 05/03/21 08:51 05/03/21 08:51 Labs: Abnormal Lab Results - Last 24 Hours (Table) 05/02/21 05/03/21 05/03/21 Range/Units 07:25 08:51 08:51 WBC 12.0 H (3.8-10.6) k/uL RBC 3.37 L (4.30-5.90) m/uL Hgb 9.1 L D (13.0-17.5) gm/dL Hct 30.1 L (39.0-53.0) % MCHC 30.3 L (31.0-37.0) g/dL RDW 18.5 H (11.5-15.5) % Neutrophils # 10.2 H (1.3-7.7) k/uL Lymphocytes # 0.8 L (1.0-4.8) k/uL Sodium 132 L 133 L (135-145) mmol/L Potassium 5.4 H (3.5-5.1) mmol/L BUN 8 L (9-20) mg/dL Glucose 185 H 166 H (70-110) mg/dL Calcium 8.2 L (8.7-10.3) mg/dL <Erwin Pierce - Last Filed: 05/03/21 13:15> Subjective As above. Patient had Hernández catheter replaced today. He is passing flatus. Will increase diet. Keep Hernández for now. Ambulate. Objective - Vital Signs Vital signs: Vital Signs Temp 98.2 F 05/03/21 08:00 Pulse 94 05/03/21 08:00 Resp 20 05/03/21 08:00 BP 173/77 05/03/21 08:00 Pulse Ox 95 05/03/21 08:00 Intake & Output 05/02/21 05/03/21 05/03/21 18:59 06:59 18:59 Intake Total 1400 Output Total 600 1350 1600 Balance 800 -1350 -1600 Intake: Intake, IV Titration 1000 Amount D5-0.45% NaCl with KCl 250 20Meq/l 1,000 ml @ 125 mls/hr IV .Q8H [facility] Rx#: [id number] D5-0.45% NaCl with KCl 750 20Meq/l 1,000 ml @ 75 mls /hr IV .[id number] [facility] Rx#: [id number] Oral 400 Output: Urine 600 1350 1600 Uretheral (Hernández) 1150 Other: Voiding Method Urinal Urinal # Voids 2 - Labs CBC & Chem 7: 05/03/21 08:51 05/03/21 08:51 Labs: Abnormal Lab Results - Last 24 Hours (Table) 05/02/21 05/03/21 05/03/21 Range/Units 07:25 08:51 08:51 WBC 12.0 H (3.8-10.6) k/uL RBC 3.37 L (4.30-5.90) m/uL Hgb 9.1 L D (13.0-17.5) gm/dL Hct 30.1 L (39.0-53.0) % MCHC 30.3 L (31.0-37.0) g/dL RDW 18.5 H (11.5-15.5) % Neutrophils # 10.2 H (1.3-7.7) k/uL Lymphocytes # 0.8 L (1.0-4.8) k/uL Sodium 132 L 133 L (135-145) mmol/L Potassium 5.4 H (3.5-5.1) mmol/L BUN 8 L (9-20) mg/dL Glucose 185 H 166 H (70-110) mg/dL Calcium 8.2 L (8.7-10.3) mg/dL Assessment and Plan (1) Colon cancer Current Visit: Yes Status: Acute Code(s): C18.9 - MALIGNANT NEOPLASM OF COLON, UNSPECIFIED SNOMED Code(s): 723468747
[2021-05-03] MEDS: DEXTROSE 5%-0.45% NACL 1,000 ML IV SCH ×2 (12:04→22:12)
--- NOTE | 2021-05-03 13:17 | P.PN ---
<Malcolm Meyer - Last Filed: 05/03/21 13:04> Subjective Progress Note Date: 05/03/21 Hospital course: Patient is a very pleasant 85-year-old male with a past medical history of atr ial fibrillation on Coumadin, hypertension, hyperlipidemia, and recent diagnosis with colon cancer involving the hepatic flexure. He is currently admitted under Gen. surgery team with Dr. Pierce and underwent a DaVinci assisted laparoscopic right colectomy secondary to right-sided colon cancer on 05/01/21. We are consulted for continued medical management throughout hospitalization. Physical exam: Vital signs reviewed and stable. General: Nontoxic, no distress and appears stated age. Derm: Skin warm and dry, normal coloration for ethnicity. Head: Atraumatic, normocephalic and symmetric. Eyes: EOMs intact, no lid lag, and anicteric sclera Mouth: no lip lesions, mucus membranes moist Cardiovascular: Irregularly irregular rhythm with controlled rate. normal S1S2, no murmur, positive posterior tibial pulses bilaterally, and cap refill < 2 seconds. Lungs: Respirations even, regular, and unlabored on room air. Lungs CTA bilaterally, no rhonchi, no rales, no wheezing, and no accessory muscle usage. Abdominal: soft, nontender to palpation, no guarding, no appreciable organomegaly. Postsurgical Incisions to abdomen are intact with no redness, swelling, or drainage noted. Bowel sounds present in all quadrants. Ext: ROM intact. No gross muscle atrophy, no edema, no contractures Neuro: Speech clear, face symmetrical and CN II-XII grossly intact with no noted focal neuro deficits Psych: Alert and oriented to person, place, time, and situation. Appropriate and pleasant affect. Assessment and Plan of Care: Status post Laparoscopic right colectomy secondary to right-sided colon cancer on 05/01/21 -Management per primary general surgery team, Dr. Hamilton. -Advancement of diet, postsurgical Pain management and clearance to resume Coumadin for anticoagulation to be managed by primary admitting general surgery team. -Encourage use of incentive spirometer 10-15 times hourly while awake. -Encourage deep breathing and splinting exercises. -Encourage ambulation and getting up to chair with meals. -SCDs for DVT prophylaxis pending clearance to resume Coumadin. Postoperative urinary retention -Since removal of Hernández catheter status post surgery, patient is now having reports of urinary retention. -Resume Flomax 0.4 mg nightly. -Bladder management and straight cath as needed. Hyperkalemia with potassium of 5.4 -Patient was receiving D5 0.45 with 20 of K, this was discontinued and patient's IV fluids were changed to D5.45 until diet can be advanced. -We will continue to monitor with repeat a.m. labs. Anemia of chronic disease -Hemoglobin 9.1, chronic in nature currently just slightly lower than baseline. -We will continue to monitor with repeat a.m. labs. Hyponatremia, improving -Sodium 133. -We will continue to monitor with repeat a.m. labs. Hypertension -Monitor vital signs and continue daily medication regimen. Chronic persistent Atrial fibrillation -Hold Coumadin until cleared to resume by general surgery status post bowel resection completed on 05/01/21. Thank you for allowing us to participate in the care of this pleasant patient. Do not hesitate to contact us with questions. Someone can be reached from the [facility] hospitalist group all hours of the day at [phone] or via BeQuan. Objective - Vital Signs Vital signs: Vital Signs Temp 98.2 F 05/03/21 08:00 Pulse 94 05/03/21 08:00 Resp 20 05/03/21 08:00 BP 173/77 05/03/21 08:00 Pulse Ox 95 05/03/21 08:00 Intake & Output 05/02/21 05/03/21 05/03/21 18:59 06:59 18:59 Intake Total 1400 Output Total 600 1350 225 Balance 800 -1350 -225 Intake: Intake, IV Titration 1000 Amount D5-0.45% NaCl with KCl 250 20Meq/l 1,000 ml @ 125 mls/hr IV .Q8H [facility] Rx#: [id number] D5-0.45% NaCl with KCl 750 20Meq/l 1,000 ml @ 75 mls /hr IV .[id number] [facility] Rx#: [id number] Oral 400 Output: Urine 600 1350 225 Other: Voiding Method Urinal Urinal # Voids 2 - Labs CBC & Chem 7: 05/03/21 08:51 05/03/21 08:51 Labs: Abnormal Lab Results - Last 24 Hours (Table) 05/02/21 05/03/21 05/03/21 Range/Units 07:25 08:51 08:51 WBC 12.0 H (3.8-10.6) k/uL RBC 3.37 L (4.30-5.90) m/uL Hgb 9.1 L D (13.0-17.5) gm/dL Hct 30.1 L (39.0-53.0) % MCHC 30.3 L (31.0-37.0) g/dL RDW 18.5 H (11.5-15.5) % Neutrophils # 10.2 H (1.3-7.7) k/uL Lymphocytes # 0.8 L (1.0-4.8) k/uL Sodium 132 L 133 L (135-145) mmol/L Potassium 5.4 H (3.5-5.1) mmol/L BUN 8 L (9-20) mg/dL Glucose 185 H 166 H (70-110) mg/dL Calcium 8.2 L (8.7-10.3) mg/dL <Le Nava - Last Filed: 05/03/21 18:08> Subjective Malcolm Meyer NP rendered care for this patient independently, reviewed the findings and plan as documented in the note above. I did not physically speak with or examine the patient on this date. Objective - Vital Signs Vital signs: Vital Signs Temp 98.8 F 05/03/21 14:00 Pulse 82 05/03/21 14:00 Resp 18 05/03/21 14:00 BP 162/67 05/03/21 14:00 Pulse Ox 95 05/03/21 14:00 Intake & Output 05/02/21 05/03/21 05/03/21 18:59 06:59 18:59 Intake Total 1400 Output Total 600 1350 2425 Balance 800 -1350 -2425 Intake: Intake, IV Titration 1000 Amount D5-0.45% NaCl with KCl 250 20Meq/l 1,000 ml @ 125 mls/hr IV .Q8H [facility] Rx#: [id number] D5-0.45% NaCl with KCl 750 20Meq/l 1,000 ml @ 75 mls /hr IV .[id number] [facility] Rx#: [id number] Oral 400 Output: Urine 600 1350 2425 Uretheral ([facility]) 1150 Other: Voiding Method Urinal Urinal # Voids 2 - Labs CBC & Chem 7: 05/03/21 08:51 05/03/21 08:51 Labs: Abnormal Lab Results - Last 24 Hours (Table) 05/03/21 05/03/21 Range/Units 08:51 08:51 WBC 12.0 H (3.8-10.6) k/uL RBC 3.37 L (4.30-5.90) m/uL Hgb 9.1 L D (13.0-17.5) gm/dL Hct 30.1 L (39.0-53.0) % MCHC 30.3 L (31.0-37.0) g/dL RDW 18.5 H (11.5-15.5) % Neutrophils # 10.2 H (1.3-7.7) k/uL Lymphocytes # 0.8 L (1.0-4.8) k/uL Sodium 133 L (137-145) mmol/L Potassium 5.4 H (3.5-5.1) mmol/L BUN 8 L (9-20) mg/dL Glucose 166 H (74-99) mg/dL
[2021-05-03] MEDS ORDERED: TAMSULOSIN 0.4 MG CAP.ER.24H PO SCH (21:00)
[2021-05-03] MEDS: traZODone HCL 50 MG TAB PO SCH (22:04)
[2021-05-03] MEDS: amLODIPine 5 MG TAB PO SCH (22:04)
[2021-05-04] MEDS: HEPARIN SODIUM,PORCINE/PF 5,000 UNIT/0.5 ML SYRINGE SQ SCH ×4 (00:18→23:33)
[2021-05-04] MEDS: LOSARTAN 50 MG TAB PO SCH (09:32)
[2021-05-04] MEDS: FAMOTIDINE 20 MG/2 ML VIAL IV SCH (09:32)
[2021-05-04] MEDS: ALVIMOPAN 12 MG CAPSULE PO SCH (09:32)
--- NOTE | 2021-05-04 11:04 | P.PN ---
<Dulce Johnson - Last Filed: 05/04/21 11:01> Subjective Progress Note Date: 05/04/21 CHIEF COMPLAINT: Right-sided colon cancer HISTORY OF PRESENT ILLNESS: Patient is status post Laparoscopic da Mauricio assisted right colectomy with intracorporeal anastomosis. Postop day #3. Patient had a liquidy brown bowel movement. He did have some crampy lower abdominal pain after bowel movement. This has now resolved. He is having flatus. Denies any nausea or vomiting. Tolerating full liquid diet. He had urinary retention and required Hernández catheter to be inserted yesterday. Afebrile. Labs pending PHYSICAL EXAM: VITAL SIGNS: Reviewed. GENERAL: Well-developed in no acute distress. HEENT: No sclera icterus. Extraocular movements grossly intact. Moist buccal mucosa. Head is atraumatic, normocephalic. ABDOMEN: Soft. Nondistended Incision sites clean dry and intact NEUROLOGIC: Alert and oriented. Cranial nerves II through XII grossly intact. ASSESSMENT: 1. Right-sided colon cancer status post Laparoscopic da Mauricio assisted right colectomy with intracorporeal anastomosis 2. Urinary retention 3. Hyperkalemia PLAN: -Advance diet to low fiber -Discontinue Hernández catheter this afternoon -Okay to Hep-Lock IV fluids -Anticipate discharge possibly tomorrow -Encouraged patient to ambulate -Encouraged patient to use incentive spirometer Physician Boat Worker note has been reviewed by physician. Signing provider agrees with the documented findings, assessment, and plan of care. Objective - Vital Signs Vital signs: Vital Signs Temp 98.4 F 05/04/21 07:30 Pulse 62 05/04/21 07:30 Resp 18 05/04/21 07:30 BP 116/64 05/04/21 07:30 Pulse Ox 93 L 05/04/21 07:41 Intake & Output 05/03/21 05/04/21 05/04/21 18:59 06:59 18:59 Output Total 3025 1700 900 Balance -3025 -1700 -900 Output: Urine 3025 1700 900 Uretheral (Hernández) 1150 Other: Voiding Method Urinal Indwelling Catheter Urinal - Labs CBC & Chem 7: 05/03/21 08:51 05/03/21 08:51 <Erwin Pierce - Last Filed: 05/04/21 15:04> Subjective As above. Patient feeling slightly better than yesterday. Hemoglobin this morning noted to be lower at 7.2. He did have a bloody stool this afternoon. Repeat CBC is pending. No lightheadedness. He is ambulating in the halls. Tolerating diet. Continue to hold anticoagulation. Monitor bleeding but likely related to anastomotic site oozing postoperatively. Remove Hernández catheter in a.m. Objective - Vital Signs Vital signs: Vital Signs Temp 98.3 F 05/04/21 13:42 Pulse 87 05/04/21 13:42 Resp 18 05/04/21 13:42 BP 147/66 05/04/21 13:42 Pulse Ox 95 05/04/21 13:42 Intake & Output 05/03/21 05/04/21 05/04/21 18:59 06:59 18:59 Output Total 3025 1700 900 Balance -3025 -1700 -900 Output: Urine 3025 1700 900 Uretheral (Hernández) 1150 Other: Voiding Method Urinal Indwelling Catheter Urinal - Labs CBC & Chem 7: 05/04/21 06:25 05/04/21 06:25 Labs: Abnormal Lab Results - Last 24 Hours (Table) 05/04/21 05/04/21 Range/Units 06:25 06:25 RBC 2.82 L (4.40-5.60) X 10*6/uL Hgb 7.2 L (13.0-17.0) g/dL Hct 25.0 L (39.6-50.0) % MCH 25.5 L (27.0-32.0) pg MCHC 28.8 L (32.0-37.0) g/dL RDW 19.9 H (11.5-14.5) % BUN 6.0 L (9.0-27.0) mg/dL BUN/Creatinine Ratio 10.00 L (12.00-20.00) Ratio Calcium 8.5 L (8.7-10.3) mg/dL Assessment and Plan (1) Colon cancer Current Visit: Yes Status: Acute Code(s): C18.9 - MALIGNANT NEOPLASM OF COLON, UNSPECIFIED SNOMED Code(s): 482824673
--- NOTE | 2021-05-04 11:12 | P.PN ---
<Malcolm Meyer - Last Filed: 05/04/21 11:03> Subjective Progress Note Date: 05/04/21 Hospital course: Patient is a very pleasant 85-year-old male with a past medical history of atr ial fibrillation on Coumadin, hypertension, hyperlipidemia, and recent diagnosis with colon cancer involving the hepatic flexure. He is currently admitted under Gen. surgery team with Dr. Pierce and underwent a DaVinci assisted laparoscopic right colectomy secondary to right-sided colon cancer on 05/01/21. We are consulted for continued medical management throughout hospitalization. Physical exam: Patient seen and fully evaluated at the bedside this morning. Today he is postoperative day 3 and appears to be doing well this morning. He was sitting up in chair and reports having a bowel movement this morning. Surgical incisions remain well approximated, intact with no surrounding erythema, swelling, or drainage. Patient reports controlled postoperative pain. He has been tolerating full liquid diet and doing well. His diet is being advanced to low fiber diet by surgery team at this time. Morning labs pending at this time. Vital signs stable. Patient denies having any complaints or concerns at this time including headache, lightheadedness, dizziness, chest pain, palpitations, shortness of breath, or any other complaints. Patient again encouraged to continue use of incentive spirometer 10-15 times hourly while awake. Vital signs reviewed and stable. General: Nontoxic, no distress and appears stated age. Derm: Skin warm and dry, normal coloration for ethnicity. Head: Atraumatic, normocephalic and symmetric. Eyes: EOMs intact, no lid lag, and anicteric sclera Mouth: no lip lesions, mucus membranes moist Cardiovascular: Irregularly irregular rhythm with controlled rate. normal S1S2, no murmur, positive posterior tibial pulses bilaterally, and cap refill < 2 seconds. Lungs: Respirations even, regular, and unlabored on room air. Lungs CTA bilaterally, no rhonchi, no rales, no wheezing, and no accessory muscle usage. Abdominal: soft, nontender to palpation, no guarding, no appreciable organomegaly. Postsurgical Incisions to abdomen are intact with no redness, swelling, or drainage noted. Bowel sounds present in all quadrants. Ext: ROM intact. No gross muscle atrophy, no edema, no contractures Neuro: Speech clear, face symmetrical and CN II-XII grossly intact with no noted focal neuro deficits Psych: Alert and oriented to person, place, time, and situation. Appropriate and pleasant affect. Assessment and Plan of Care: Status post Laparoscopic right colectomy secondary to right-sided colon cancer on 05/01/21 -Management per primary general surgery team, Dr. Hamilton. -Advancement of diet, postsurgical Pain management and clearance to resume Coumadin for anticoagulation to be managed by primary admitting general surgery team. -Encourage use of incentive spirometer 10-15 times hourly while awake. -Encourage deep breathing and splinting exercises. -Encourage ambulation and getting up to chair with meals. -SCDs for DVT prophylaxis pending clearance to resume Coumadin. Postoperative urinary retention -Since removal of Hernández catheter status post surgery, patient is now having reports of urinary retention. -Resume Flomax 0.4 mg nightly. -Bladder management and straight cath as needed. -Hernández catheter was placed yesterday evening on 05/03/21 secondary to persistent urinary retention. Discussed this finding with patient and plan to reattempt voiding challenge. Hyperkalemia with potassium of 5.4 -Patient was receiving D5 0.45 with 20 of K, this was discontinued and patient's IV fluids were changed to D5.45 until diet can be advanced. -Awaiting morning labs to result. We will continue to monitor with repeat a.m. labs. Anemia of chronic disease -Hemoglobin 9.1, chronic in nature currently just slightly lower than baseline. -We will continue to monitor with repeat a.m. labs. Hyponatremia, improving -Sodium 133. -We will continue to monitor with repeat a.m. labs. Hypertension -Monitor vital signs and continue daily medication regimen. Chronic persistent Atrial fibrillation -Hold Coumadin until cleared to resume by general surgery status post bowel resection completed on 05/01/21. Thank you for allowing us to participate in the care of this pleasant patient. Do not hesitate to contact us with questions. Someone can be reached from the [facility] hospitalist group all hours of the day at [phone] or via [employer]. Objective - Vital Signs Vital signs: Vital Signs Temp 98.4 F 05/04/21 07:30 Pulse 62 05/04/21 07:30 Resp 18 05/04/21 07:30 BP 116/64 05/04/21 07:30 Pulse Ox 93 L 05/04/21 07:41 Intake & Output 05/03/21 05/04/21 05/04/21 18:59 06:59 18:59 Output Total 3025 1700 Balance -3025 -1700 Output: Urine 3025 1700 Uretheral (Hernández) 1150 Other: Voiding Method Urinal Indwelling Catheter - Labs CBC & Chem 7: 05/03/21 08:51 05/03/21 08:51 <Le Nava - Last Filed: 05/04/21 18:57> Subjective Patient seen and examined independently. Patient was also seen by Malcolm Meyer NP and case was discussed. I am in agreement with subjective, physical exam, assessment and plan as written above and amended below. We're in the room and patient complained of having a bright red dark cloudy bowel movement. He also complained of some overall weakness and just not feeling well. Case was discussed with . We'll recheck the and hold Coumadin tonight, recheck CBC every 6 hours. Monitor closely. Maintain Hernández until tomorrow morning. General: non toxic, no distress, appears at stated age Derm: warm, dry Head: atraumatic, normocephalic, symmetric Eyes: EOMI, no lid lag, anicteric sclera Mouth: no lip lesion, mucus membranes moist Cardiovascular: S1S2 reg, no murmur, positive posterior tibial pulse bilateral, Lungs: Decreased breath sounds bilateral, no rhonchi, no rales , no accessory muscle use Abdominal: soft, nontender to palpation, no guarding, no appreciable organomegaly, multiple metastatic incisions without bleeding Ext: no gross muscle atrophy, no edema, no contractures Neuro: CN II-XI grossly intact, no focal neuro deficits Psych: Alert, oriented, appropriate affect Objective - Vital Signs Vital signs: Vital Signs Temp 98.3 F 05/04/21 13:42 Pulse 87 05/04/21 13:42 Resp 18 05/04/21 13:42 BP 147/66 05/04/21 13:42 Pulse Ox 95 05/04/21 13:42 Intake & Output 05/03/21 05/04/21 05/04/21 18:59 06:59 18:59 Output Total 3025 1700 1700 Balance -3025 -1700 -1700 Output: Urine 3025 1700 1700 Uretheral (Hernández) 1150 Other: Voiding Method Urinal Indwelling Catheter Urinal # Bowel Movements 2 - Labs CBC & Chem 7: 05/04/21 14:58 05/04/21 06:25 Labs: Abnormal Lab Results - Last 24 Hours (Table) 05/04/21 05/04/21 05/04/21 Range/Units 06:25 06:25 14:58 RBC 2.82 L 2.97 L (4.40-5.60) X 10*6/uL Hgb 7.2 L 8.2 L (13.0-17.0) g/dL Hct 25.0 L 26.1 L (39.6-50.0) % MCH 25.5 L (27.0-32.0) pg MCHC 28.8 L (32.0-37.0) g/dL RDW 19.9 H 18.8 H (11.5-14.5) % BUN 6.0 L (9.0-27.0) mg/dL BUN/Creatinine Ratio 10.00 L (12.00-20.00) Ratio Calcium 8.5 L (8.7-10.3) mg/dL
[2021-05-04 12:08] LABS: Basophils # (A) 0.02 X 10*3/uL (0.00-0.10); Basophils % (A) 0.2 %; Eosinophils # (A) 0.32 X 10*3/uL (0.04-0.35); Eosinophils % (A) 3.6 %; HGB 7.2 g/dL (13.0-17.0); Lymphocytes # (A) 0.98 X 10*3/uL (0.90-5.00); Lymphocytes % (A) 11.2 %; MCH 25.5 pg (27.0-32.0); MCHC 28.8 g/dL (32.0-37.0); MCV 88.7 fL (80.0-97.0); Mean Platelet Volume 10.6 fL (9.5-12.2); Monocytes % (A) 10.3 %; Neutrophils # (A) 6.51 X 10*3/uL (1.80-7.70); Neutrophils % (A) 74.2 %; Platelet Count 163 X 10*3/uL (140-440); RBC 2.82 X 10*6/uL (4.40-5.60); RDW 19.9 % (11.5-14.5); WBC 8.77 X 10*3/uL (4.50-10.00)
[2021-05-04 14:08] LABS: African American GFR (CKD) 106.3 (60.0-200.0); Anion Gap 5.7 mmol/L (4.00-12.00); Calcium 8.5 mg/dL (8.7-10.3); Carbon Dioxide 25.3 mmol/L (21.6-31.8); Non-African American GFR(CKD) 91.7 (60.0-200.0)
[2021-05-04 15:58] LABS: Anisocytosis Slight; HCT 26.1 % (39.0-53.0); HGB 8.2 gm/dL (13.0-17.5); Hypochromasia Marked; MCH 27.6 pg (25.0-35.0); MCHC 31.5 g/dL (31.0-37.0); MCV 87.7 fL (80.0-100.0); Mean Platelet Volume 7.7; Platelet Count 182 k/uL (150-450); RBC 2.97 m/uL (4.30-5.90); RDW 18.8 % (11.5-15.5); WBC 8.5 k/uL (3.8-10.6)
[2021-05-04] MEDS ORDERED: WARFARIN 7.5 MG TAB PO ONE (18:00)
[2021-05-04] MEDS ORDERED: ALFUZOSIN 10 MG PO SCH (21:00)
[2021-05-04 21:11] LABS: Anisocytosis Slight; HCT 26.1 % (39.0-53.0); HGB 8.1 gm/dL (13.0-17.5); Hypochromasia Marked; MCH 27.4 pg (25.0-35.0); MCHC 31.2 g/dL (31.0-37.0); Mean Platelet Volume 9.6; Platelet Count 178 k/uL (150-450); RBC 2.96 m/uL (4.30-5.90); RDW 19.1 % (11.5-15.5); WBC 7.8 k/uL (3.8-10.6)
[2021-05-04] MEDS: FAMOTIDINE 20 MG TAB PO SCH (23:34)
[2021-05-04] MEDS: amLODIPine 5 MG TAB PO SCH (23:34)
[2021-05-04] MEDS: traZODone HCL 50 MG TAB PO SCH (23:34)
[2021-05-05 04:54] LABS: Anisocytosis Slight; HCT 27.4 % (39.0-53.0); HGB 8.3 gm/dL (13.0-17.5); Hypochromasia Moderate; MCH 26.5 pg (25.0-35.0); MCHC 30.1 g/dL (31.0-37.0); MCV 88.2 fL (80.0-100.0); Mean Platelet Volume 8.1; Platelet Count 183 k/uL (150-450); RBC 3.11 m/uL (4.30-5.90); RDW 18.7 % (11.5-15.5); WBC 8.1 k/uL (3.8-10.6)
[2021-05-05 05:06] LABS: INR 1.1 (<1.2); Prothrombin Time 11.3 sec (9.0-12.0)
[2021-05-05 07:24] VITALS: BP 146/67; PULSE 81; RESP 16; TEMP 97.8
[2021-05-05] MEDS: HEPARIN SODIUM,PORCINE/PF 5,000 UNIT/0.5 ML SYRINGE SQ SCH (08:21)
[2021-05-05] MEDS: HYDROcodone/APAP 5-325MG 1 EACH TAB PO PRN (08:21)
[2021-05-05] MEDS: LOSARTAN 50 MG TAB PO SCH (08:21)
[2021-05-05] MEDS: FAMOTIDINE 20 MG TAB PO SCH (08:21)
[2021-05-05 10:56] LABS: Anisocytosis Slight; Basophils % (A) 0 %; Eosinophils # (A) 0.3 k/uL (0-0.7); Eosinophils % (A) 4 %; HCT 28.6 % (39.0-53.0); HGB 8.3 gm/dL (13.0-17.5); Hypochromasia Marked; Lymphocytes # (A) 0.8 k/uL (1.0-4.8); Lymphocytes % (A) 11 %; MCH 25.9 pg (25.0-35.0); MCV 89.1 fL (80.0-100.0); Mean Platelet Volume 7.9; Monocytes # (A) 0.5 k/uL (0-1.0); Monocytes % (A) 6 %; Neutrophils # (A) 5.9 k/uL (1.3-7.7); Neutrophils % (A) 77 %; Platelet Count 181 k/uL (150-450); RBC 3.21 m/uL (4.30-5.90); RDW 18.2 % (11.5-15.5); WBC 7.6 k/uL (3.8-10.6)
--- NOTE | 2021-05-05 11:31 | P.PN ---
<Malcolm Meyer - Last Filed: 05/05/21 17:18> Subjective Progress Note Date: 05/05/21 Hospital course: Patient is a very pleasant 85-year-old male with a past medical history of atr ial fibrillation on Coumadin, hypertension, hyperlipidemia, and recent diagnosis with colon cancer involving the hepatic flexure. He is currently admitted under Gen. surgery team with Dr. Pierce and underwent a DaVinci assisted laparoscopic right colectomy secondary to right-sided colon cancer on 05/01/21. We are consulted for continued medical management throughout hospitalization. Physical exam: Patient seen and fully evaluated at the bedside this morning. Today he is postoperative day 4 and pt appears to be doing well this morning. He denies h aving any further episodes of blood in stool or dark-colored stool. His hemoglobin has remained stable. Patient had another bowel movement this morning in which both he and RN reports was brown in color with no signs of melena or hematochezia. Patient reports improvement of abdominal pain and denies having any chest pain, palpitations, shortness of breath, nausea, or vomiting. Hernández catheter was again removed and patient undergoing voiding challenge at this time. He has been tolerating low fiber diet without any complaints. Vital signs stable. Vital signs reviewed and stable. General: Nontoxic, no distress and appears stated age. Derm: Skin warm and dry, normal coloration for ethnicity. Head: Atraumatic, normocephalic and symmetric. Eyes: EOMs intact, no lid lag, and anicteric sclera Mouth: no lip lesions, mucus membranes moist Cardiovascular: Irregularly irregular rhythm with controlled rate. normal S1S2, no murmur, positive posterior tibial pulses bilaterally, and cap refill < 2 seconds. Lungs: Respirations even, regular, and unlabored on room air. Lungs CTA bilater ally, no rhonchi, no rales, no wheezing, and no accessory muscle usage. Abdominal: soft, nontender to palpation, no guarding, no appreciable organomegaly. Postsurgical Incisions to abdomen are intact with no redness, swelling, or drainage noted. Bowel sounds present in all quadrants. Ext: ROM intact. No gross muscle atrophy, no edema, no contractures Neuro: Speech clear, face symmetrical and CN II-XII grossly intact with no noted focal neuro deficits Psych: Alert and oriented to person, place, time, and situation. Appropriate and pleasant affect. Assessment and Plan of Care: Status post Laparoscopic right colectomy secondary to right-sided colon cancer on 05/01/21 -Management per primary general surgery team, Dr. Hamilton. -Advancement of diet, postsurgical Pain management and clearance to resume Coumadin for anticoagulation to be managed by primary admitting general surgery team. -Encourage use of incentive spirometer 10-15 times hourly while awake. -Encourage deep breathing and splinting exercises. -Encourage ambulation and getting up to chair with meals. Acute blood loss anemia on chronic anemia, hemoglobin is now stable Postoperative urinary retention -Hernández catheter removed, patient undergoing voiding challenge again at this time. -Continue Flomax 0.4 mg nightly. -Bladder management and straight cath as needed. Hyperkalemia, resolved Hyponatremia, resolved -We will continue to monitor with repeat a.m. labs. Hypertension -Monitor vital signs and continue daily medication regimen. Chronic persistent Atrial fibrillation -Hold Coumadin until cleared to resume by general surgery status post bowel resection completed on 05/01/21. Thank you for allowing us to participate in the care of this pleasant patient. Do not hesitate to contact us with questions. Someone can be reached from the [facility] hospitalist group all hours of the day at [phone] or via [employer]. Objective - Vital Signs Vital signs: Vital Signs Temp 97.8 F 05/05/21 07:23 Pulse 81 05/05/21 07:23 Resp 16 05/05/21 07:23 BP 146/67 05/05/21 07:23 Pulse Ox 93 L 05/05/21 07:23 Intake & Output 05/04/21 05/05/21 05/05/21 18:59 06:59 18:59 Output Total 1700 1600 Balance -1700 -1600 Output: Urine 1700 1600 Other: Voiding Method Urinal Indwelling Catheter # Bowel Movements 2 2 - Labs CBC & Chem 7: 05/05/21 10:13 05/04/21 06:25 Labs: Abnormal Lab Results - Last 24 Hours (Table) 05/04/21 05/04/21 05/04/21 Range/Units 06:25 06:25 14:58 RBC 2.82 L 2.97 L (4.40-5.60) X 10*6/uL Hgb 7.2 L 8.2 L (13.0-17.0) g/dL Hct 25.0 L 26.1 L (39.6-50.0) % MCH 25.5 L (27.0-32.0) pg MCHC 28.8 L (32.0-37.0) g/dL RDW 19.9 H 18.8 H (11.5-14.5) % Lymphocytes # (1.0-4.8) k/uL BUN 6.0 L (9.0-27.0) mg/dL BUN/Creatinine Ratio 10.00 L (12.00-20.00) Ratio Calcium 8.5 L (8.7-10.3) mg/dL 05/04/21 05/05/21 05/05/21 Range/Units 21:01 04:17 10:13 RBC 2.96 L 3.11 L 3.21 L (4.40-5.60) X 10*6/uL Hgb 8.1 L 8.3 L 8.3 L (13.0-17.0) g/dL Hct 26.1 L 27.4 L 28.6 L (39.6-50.0) % MCH (27.0-32.0) pg MCHC 30.1 L 29.0 L (32.0-37.0) g/dL RDW 19.1 H 18.7 H 18.2 H (11.5-14.5) % Lymphocytes # 0.8 L (1.0-4.8) k/uL BUN (9.0-27.0) mg/dL BUN/Creatinine Ratio (12.00-20.00) Ratio Calcium (8.7-10.3) mg/dL <Le Nava - Last Filed: 05/05/21 18:56> Subjective Patient seen and examined independently. Patient was also seen by Malcolm Meyer NP and case was discussed. I am in agreement with subjective, physical exam, assessment and plan as written above and amended below. Feeling well no nausea or vomiting, having bowel movements without any blood. Family at bedside discussed that he will take Coumadin 7.5 mg for the next 2 days and resume his 5 mg. Patient will have an INR completed on Saturday. He will resume the rest of his home medications as taking prior to hospitalization. Discussed with nursing and multiple bladder scans have been normal. No indication of urinary retention at this time. General: Nontoxic, no distress, appears at stated age Derm: warm, dry Head: atraumatic, normocephalic, symmetric Eyes: EOMI, no lid lag, anicteric sclera Mouth: no lip lesion, mucus membranes moist Cardiovascular: S1S2 reg, no murmur, positive posterior tibial pulse bilateral, Lungs: CTA bilateral, no rhonchi, no rales , no accessory muscle use Abdominal: soft, + tender to palpation, no guarding, no appreciable organomegaly Ext: no gross muscle atrophy, no edema, no contractures Neuro: CN II-XI grossly intact, no focal neuro deficits Psych: Alert, oriented, appropriate affect Objective - Vital Signs Vital signs: Vital Signs Temp 97.8 F 05/05/21 07:23 Pulse 81 05/05/21 07:23 Resp 16 05/05/21 07:23 BP 146/67 05/05/21 07:23 Pulse Ox 93 L 05/05/21 07:23 Intake & Output 05/04/21 05/05/21 05/05/21 18:59 06:59 18:59 Output Total 1700 1600 Balance -1700 -1600 Output: Urine 1700 1600 Other: Voiding Method Urinal Indwelling Catheter # Bowel Movements 2 2 - Labs CBC & Chem 7: 05/05/21 10:13 05/04/21 06:25 Labs: Abnormal Lab Results - Last 24 Hours (Table) 05/04/21 05/05/21 05/05/21 Range/Units 21:01 04:17 10:13 RBC 2.96 L 3.11 L 3.21 L (4.30-5.90) m/uL Hgb 8.1 L 8.3 L 8.3 L (13.0-17.5) gm/dL Hct 26.1 L 27.4 L 28.6 L (39.0-53.0) % MCHC 30.1 L 29.0 L (31.0-37.0) g/dL RDW 19.1 H 18.7 H 18.2 H (11.5-15.5) % Lymphocytes # 0.8 L (1.0-4.8) k/uL
--- NOTE | 2021-05-05 14:52 | P.DS ---
<Dulce Johnson - Last Filed: 05/05/21 14:48> Providers Expected date of discharge: 05/05/21 Hospital Course: Discharge diagnosis 1. Right-sided colon cancer status post Laparoscopic da Mauricio assisted right colectomy with intracorporeal anastomosis 2. Urinary retention resolved Hospital course This is a 85-year-old male was diagnosed with right sided colon cancer. He is status post Laparoscopic da Mauricio assisted right colectomy with intracorporeal anastomosis. Patient has tolerated surgery well. His pain is controlled. He is tolerating diet. He is up and ambulating. He is having bowel movements. He is urinating without difficulty. He is afebrile. Patient's incision sites are clean dry and intact. He is stable for discharge. Please refer to chart for any further details. Physician Boat Joiner note has been reviewed by physician. Signing provider agrees with the documented findings, assessment, and plan of care. Patient Condition at Discharge: Stable Plan - Discharge Summary Discharge Rx Participant: Yes New Discharge Prescriptions: New HYDROcodone/APAP 5-325MG [Goodwin 5-325] 1 tab PO Q6HR PRN 3 Days #12 tab PRN Reason: Pain Continue Warfarin [Coumadin] 5 mg PO HS Ezetimibe/Simvastatin [Ezetimibe/Simvastatin 10-40 mg] 0.5 tab PO HS traZODone HCL 50 mg PO HS amLODIPine BESYLATE 5 mg PO HS Multivitamin/Iron/Folic Acid [Centrum Complete Multivit Tab] 1 each PO DAILY Losartan Potassium 50 mg PO QAM Famotidine [Pepcid AC] 10 mg PO AC-BRKFST Alfuzosin HCl [Alfuzosin HCl ER] 10 mg PO HS Discontinued polyethylene glycoL 3350 [Miralax] 17 gm PO HS Ferrous Sulfate [Feosol] 325 mg PO DAILY Discharge Medication List Alfuzosin HCl [Alfuzosin HCl ER] 10 mg PO HS 04/12/21 [History] Ezetimibe/Simvastatin [Ezetimibe/Simvastatin 10-40 mg] 0.5 tab PO HS 04/12/21 [History] Famotidine [Pepcid AC] 10 mg PO AC-BRKFST 04/12/21 [History] Losartan Potassium 50 mg PO QAM 04/12/21 [History] Multivitamin/Iron/Folic Acid [Centrum Complete Multivit Tab] 1 each PO DAILY 04/12/21 [History] Warfarin [Coumadin] 5 mg PO HS 04/12/21 [History] amLODIPine BESYLATE 5 mg PO HS 04/12/21 [History] traZODone HCL 50 mg PO HS 04/12/21 [History] HYDROcodone/APAP 5-325MG [Goodwin 5-325] 1 tab PO Q6HR PRN 3 Days #12 tab 05/05/21 [Rx] Follow up Appointment(s)/Referral(s): Erwin Pierce MD [Medical Doctor] - 1 Week (office closed. Pt to make self appointment. ) Ambulatory/Diagnostic Orders: Prothrombin Time INR [LAB.AMB] Time Frame: 5 Days, Location: None Selected Patient Instructions/Handouts: Colectomy (DC) Activity/Diet/Wound Care/Special Instructions: Special Instructions: Coumadin 7.5 mg (1 and 1/2 tablets) at night on 05/05 and 05/06 then resume 5 mg daily. Check INR with [facility] on Saturday05/09/21. No driving while taking Goodwin No lifting over 10 pounds You may shower. No soaking or tub baths for 2 weeks Very light activity until you are reevaluated at your follow up appointment with your surgeon Discharge Disposition: HOME SELF-CARE <Erwin Pierce - Last Filed: 05/05/21 15:21> Providers Date of admission: 05/01/21 09:50 Attending physician: Erwin Pierce Consults: 05/01/21 16:40 Consult Physician Routine Consulting Provider: Santo Cat Consult Reason/Comments: med mgmt Do you want consulting provider notified?: Yes Primary care physician: Ang Brothers MD - Discharge Diagnosis(es) (1) Colon cancer Current Visit: Yes Status: Acute Hospital Course: As above. Patient doing well at this time. No further bleeding. Able to void spontaneously. May discharge. Follow-up one week.
--- NOTE | 2021-05-05 16:06 | CDI ---
Documentation Clarification Form Date: 05/05/2021 03:41:23 PM From: Dayanna Calderon RN, CCDS Admit Date: 05/01/2021 09:50:00 AM Patient Name: Adiel Vargas Visit Number: [id number] Discharge Date: ATTENTION: The Clinical Documentation Specialists (CDI) and [facility] Coding Staff appreciate your assistance in clarifying documentation. Please respond to the clarification below the line at the bottom and electronically sign. The CDI & [facility] Coding staff will review the response and follow-up if needed. Please note: Queries are made part of the Legal Health Record. If you have any questions, please contact the author of this message via ITS. Dr. Erwin Pierce Post-operative urinary retention is documented in the progress notes on 05/03/21 and patient had laparoscopic right colectomy on 05/01/31. Additional clarification is requested regarding the relationship, if any, that exists between the diagnosis and the procedure. Patients Admitting Diagnosis: Right side colon cancer Post-Operative Diagnosis: same Procedure performed: Laparoscopic da Mauricio associated right colectomy with intracorporeal anastomosis History/Risk Factors: Colon cancer, Hypertension, A. Fib, Anemia Clinical Indicators: 85-year-old male for present for elective Laparoscopic da Mauricio assisted right colectomy on 05/01/21. Postop day #2 he was complaining of urinary retention. Per progress note he take medication for his prostate. Treatment Hernández catheter insertion 05/03/21-05/05/21 Flomax 0.4 MG PO HS 05/03 Straight cath D5 1/2 NS AT 75 ML/HR Bladder scan per orders What relationship, if any, exists between the diagnosis of urinary retention and the procedure? [ ] Urinary retention is a complication of surgical procedure [X] Urinary retention] is an expected outcome of the surgical procedure [ ] Urinary retention is related to patients co-morbid condition(s) of [insert co-morbid dxs] & not a complication of the procedure [ ] Other please specify ____ [ ] Unable to determine (Template Last Revised: October 2020) MTDD
== END 2021-05-05 16:02 | disposition home or self-care (01) | DRG 330 ==
LOC: 2ORMAIN 09:50 → 4SSUR 17:06
PROVIDERS: ADMIT Surgery; ATTEND Surgery
PROC: 8E0W3CZ Robotic Assisted Procedure of Trunk Region, Percutaneous Approach (ICD-10-PCS; 2021-05-01)
PROC: 0DTF0ZZ Resection of Right Large Intestine, Open Approach (ICD-10-PCS; principal; 2021-05-01 11:45)
DX: C18.3 Malignant neoplasm of hepatic flexure (principal); E87.1 Hypo-osmolality and hyponatremia; R33.9 Retention of urine, unspecified; I48.91 Unspecified atrial fibrillation; Z79.01 Long term (current) use of anticoagulants; I10 Essential (primary) hypertension; E78.5 Hyperlipidemia, unspecified; E87.5 Hyperkalemia; D64.9 Anemia, unspecified; H91.90 Unspecified hearing loss, unspecified ear; I25.2 Old myocardial infarction; Z95.5 Presence of coronary angioplasty implant and graft; Z97.4 Presence of external hearing-aid
CPT/HCPCS: 80048; 85025; 85027; 85610; 86850; 86900; 86901; 88309; 94760

== ENCOUNTER → 2021-10-09 | Outpatient (CLI) | payer MEDICARE, BC ==
[2021-10-09 19:08] LABS: Anion Gap 9.8 mmol/L (10.00-18.00); BUN/Creat Ratio 12.57 Ratio (12.00-20.00); Blood Urea Nitrogen 9.9 mg/dL (9.0-27.0); Calcium 9.6 mg/dL (8.7-10.3); Carbon Dioxide 26.7 mmol/L (20.0-27.5); Non-African American GFR(CKD) 81.9 (60.0-200.0); Potassium 4.8 mmol/L (3.5-5.5)
== END | disposition home or self-care (01) ==
LOC: LABWHC1 13:00
PROVIDERS: ATTEND Nurse Practitioner Adult Health
DX: I10 Essential (primary) hypertension (principal)
CPT/HCPCS: 36415; 80048

== ENCOUNTER → 2021-10-30 | Outpatient (CLI) | payer MEDICARE, BC ==
--- NOTE | 2021-10-30 16:59 | CT ---
EXAMINATION TYPE: CT chest wo con DATE OF EXAM: 10/30/2021 COMPARISON: 04/17/2021 HISTORY: nodules CT DLP: 268.5 mGycm Automated exposure control for dose reduction was used. Images obtained from the thoracic inlet to the diaphragm without contrast. There is no mediastinal adenopathy. Thoracic aorta is atheromatous. There is coronary artery calcific ation. Ascending aorta measures 4 cm. There are no hilar masses. There is some elevation of the right diaphragm and mild atelectasis right lung base. Heart is top normal in size. There is some mild coarse linear density at the lung bases consistent with scarring and subsegmental atelectasis. There is some focal atelectasis anterior segment of the right upper lobe. There is no pe ricardial effusion. There is degenerative hypertrophic changes in the thoracic spine. No compression fracture. Sternum is intact. There is no evidence of rib fracture. IMPRESSION: Scarring and atelectasis in both lung villa as described above without significant change compared t o old exam. No suspicious pulmonary mass. Atherosclerotic vascular disease. 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 Old granulomatous diseas e.
== END | disposition home or self-care (01) ==
LOC: RADCTMAIN 14:20
PROVIDERS: ATTEND Internal Medicine
DX: J98.11 Atelectasis (principal); R91.8 Other nonspecific abnormal finding of lung field; I70.90 Unspecified atherosclerosis; I71.2 Thoracic aortic aneurysm, without rupture
CPT/HCPCS: 71250

== ENCOUNTER 2022-05-04 07:36 | Day surgery (SDC) | payer MEDICARE, BC ==
[2022-05-03 09:44] VITALS: BMI 23.5
[~2022-05-04 07:36] MED LIST changes: -ACETAMINOPHEN TAB 500 MG TAB PO PRN; -HEPARIN SODIUM,PORCINE/PF 5,000 UNIT/0.5 ML SYRINGE SQ PRN; +LACTATED RINGERS 1,000 ML IV SCH; -ONDANSETRON 4 MG/2 ML VIAL IVP ONE; -metroNIDAZOLE-NS PMX 500 MG in SALINE 1 100ML.BAG IVPB PRN
[2022-05-04 08:28] VITALS: TEMP 97.6
[2022-05-04] MEDS ORDERED: PROPOFOL 10 MG/ML 20 ML VIAL IV ONE (08:53)
--- NOTE | 2022-05-04 09:07 | P.PCN ---
Date of Procedure: 05/04/22 Procedure(s) Performed: BRIEF HISTORY: Patient is a 85-year-old pleasant white male scheduled for an elective colonoscopy as a part of surveillance of colon cancer diagnosed in April 2021. His status post right hemicolectomy for hepatic flexure adenocarcinoma. He scheduled for a surveillance colonoscopy today. PROCEDURE PERFORMED: Colonoscopy with snare polyp rectum. PREOPERATIVE DIAGNOSIS: All of colon cancer diagnosed April 2020 when status post right hemicolectomy. IV sedation per Anesthesia. PROCEDURE: After informed consent was obtained, the patient, was brought into the endoscopy unit. IV sedation was administered by Anesthesia under continuous monitoring. Digital rectal examination was normal. Initially the Olympus CF-160 flexible video colonoscope was then inserted in the rectum, gradually advanced into the right colon where there was evidence of regional colic anastomosis and appeared normal. In the transverse colon there was a 1 m flat polyp removed by snare polypectomy. Rest of the, transverse colon, descending colon, sigmoid colon, and rectum appeared normal. Scattered sigmoid diverticulosis seen. Retroflexion was performed in the rectum and grade 2 internal hemorrhoids were seen. The patient tolerated the procedure well. IMPRESSION: Normal right-sided ileocolic anastomosis 1 cm flat transverse colon polyp status post polypectomy Scattered sigmoid diverticulosis Small internal hemorrhoids RECOMMENDATIONS: Findings of this examination were discussed with the patient as well as his family. He was advised to follow with the biopsy results. If the biopsy reveals adenoma he was advised to have a repeat colonoscopy in 3 years..
[2022-05-04] MEDS ORDERED: LACTATED RINGERS 1,000 ML IV ONE (09:13)
[2022-05-04] MEDS ORDERED: GLYCOPYRROLATE 0.2 MG/ML 2 ML VIAL IVP ONE (10:00)
[2022-05-04 10:04] VITALS: RESP 16
[2022-05-04 10:06] VITALS: BP 164/79; PULSE 76
== END 2022-05-04 10:15 | disposition home or self-care (01) ==
LOC: ORWHC2ENDO 07:36
PROVIDERS: ATTEND Internal Medicine Gastroenterology
DX: Z12.11 Encounter for screening for malignant neoplasm of colon (principal); D12.3 Benign neoplasm of transverse colon; K57.30 Diverticulosis of large intestine without perforation or abscess without bleeding; K64.8 Other hemorrhoids; I10 Essential (primary) hypertension; E78.5 Hyperlipidemia, unspecified; I48.91 Unspecified atrial fibrillation; N42.9 Disorder of prostate, unspecified; I25.2 Old myocardial infarction; M48.00 Spinal stenosis, site unspecified; K21.9 Gastro-esophageal reflux disease without esophagitis; Z98.0 Intestinal bypass and anastomosis status; Z88.2 Allergy status to sulfonamides; Z98.890 Other specified postprocedural states; Z98.84 Bariatric surgery status; Z93.3 Colostomy status; Z79.899 Other long term (current) drug therapy
CPT/HCPCS: 88305; 45385; J2704

== ENCOUNTER → 2022-08-17 | Outpatient (CLI) | payer MEDICARE, BC ==
[2022-08-17 14:26] LABS: African American GFR (CKD) >90 (>60 ml/min/1.73 sqM); Blood Urea Nitrogen 12 mg/dL (9-20); Non-African American GFR(CKD) 88 (>60 ml/min/1.73 sqM)
--- NOTE | 2022-08-17 16:02 | CT ---
EXAMINATION: CT ABDOMEN AND PELVIS WITHOUT AND WITH IV CONTRAST DATE OF EXAMINATION: 08/17/2022. COMPARISON: CT chest, abdomen and pelvis on 04/17/2021.. INDICATION: Gross hematuria. PROCEDURE: Axial CT of the abdomen and pelvis was performed with sagittal and coronal reformatted i mages without and with contrast enhancement. CT dose lowering techniques were used, to include: autom ated exposure control, adjustment for patient size, and/or use of iterative reconstruction. FINDINGS: LOWER CHEST : A few scattered linear and platelike bands of opacities at the visualized lung bases w hich are likely atelectasis or scarring. Partially visualized subcarinal calcified lymph node is seen . There is severe coronary artery calcifications which are also partially visualized and moderate antonia bal cardiomegaly. ABDOMEN: Liver and Biliary system: Normal. Adrenal glands: Normal. Kidneys and ureters: Few scattered bilateral simple appearing renal cysts. Subcentimeter hypodensiti es are also seen that are too small to fully characterize. No definitive suspicious renal or urinary tract lesions are seen.. Spleen: Normal. Pancreas: Normal. Gallbladder: Normal. Lymph nodes, Peritoneum and mesentery: There is no mesenteric or retroperitoneal lymphadenopathy. Gastrointestinal tract: There are no dilated loops of bowel or free intraperitoneal air. . No evide nce of appendicitis. There is moderate to significant descending colonic and sigmoid colonic divertic ulosis without evidence of diverticulitis. Aorta/IVC: Significant vascular calcification throughout the abdominal aorta without evidence of an eurysmal dilation or dissection.. IVC normal. Abdominal wall: Normal. PELVIS: Fluid: There is no free fluid in the pelvis. Lymph Nodes: There is no pelvic or inguinal lymphadenopathy.. Urinary bladder: No significant bladder lesions are seen, however there is moderate to significant p rostatomegaly which indents the base of the bladder.. BONES: There is a mild dextroconvex curvature of the lumbar spine. There is severe multilevel degene rative disc and facet changes otherwise seen throughout the spine.. ADDITIONAL SIGNIFICANT FINDINGS: None. IMPRESSION: 1. No renal stones or hydronephrosis.. 2. No suspicious renal, urinary tract or bladder lesions identified. 3. Moderate to marked prostamegaly. 4. Diverticulosis without evidence of diverticulitis.
== END | disposition home or self-care (01) ==
LOC: RADCTMAIN 13:24
PROVIDERS: ATTEND Urology
DX: N40.0 Benign prostatic hyperplasia without lower urinary tract symptoms (principal); K57.30 Diverticulosis of large intestine without perforation or abscess without bleeding; R31.0 Gross hematuria
CPT/HCPCS: 82565; 84520; 74178; 36415; 74400; Q9967

== ENCOUNTER → 2022-10-01 | Outpatient (CLI) | payer MEDICARE, BC ==
--- NOTE | 2022-10-02 07:16 | MR ---
EXAMINATION TYPE: MR shoulder RT wo con DATE OF EXAM: 10/01/2022 COMPARISON: Outside right shoulder x-ray September 19, 2022 HISTORY: Right shoulder pain and limited range of motion for 4 weeks ago due to slip on ice. TECHNIQUE: Multiplanar, multisequence imaging of the right shoulder is performed without contrast. FINDINGS: Rotator Cuff: Distal supraspinatus and infraspinatus tendons are intact. Rotator muscle bulk is prese rved. Acromioclavicular Joint: Moderate to severe capsular hypertrophy and moderate narrowing. Underlying f at plane is maintained. Distal acromion morphology unremarkable. Glenohumeral Joint: Small joint effusion. [id number]-[id number] narrowing greatest anteriorly. No signific ant spurring. Labrum: The labrum appears grossly intact given limitation of non-arthrogram study. Biceps Tendon: The long head of biceps is in normal location within bicipital groove. Increased signa l in the intra-articular portion. Bone marrow signal: Subchondral cystic change superior humeral head. Other: No additional significant abnormality is appreciated. IMPRESSION: Degenerative changes as detailed above. No rotator cuff or labral tear is seen.
== END | disposition home or self-care (01) ==
LOC: RADMRIMAIN 13:11
PROVIDERS: ATTEND Orthopaedic Surgery
DX: M19.011 Primary osteoarthritis, right shoulder (principal); M25.411 Effusion, right shoulder

== ENCOUNTER 2022-11-14 09:14 | Day surgery (SDC) | payer MEDICARE, BC ==
--- NOTE | 2022-11-12 14:05 | P.HPOR ---
History of Present Illness H&P Date: 11/12/22 Chief Complaint: Left carpal tunnel syndrome Subjective: This is a 86 year old male that presents today for initial evaluation regarding a several year history of progressively worsening right and left hand paresthesias in the thumb, index, middle and ring fingers. He denies any injury. He states the numbness in constant and he has weakness now. They deny any inciting event or neck pain. Physical Examination: RUE: AIN/PIN/Radial/Ulnar/Median motor intact. Radial/Ulnar/Median SILT. 2+/4 Radial/Ulnar pulses palpated. 0/5 APB, 5/5 FDI. Negative Finkelsteins, negative CMC grind, positive Durkan's compression. Thenar wasting present. LUE: AIN/PIN/Radial/Ulnar/Median motor intact. Radial/Ulnar/Median SILT. 2+/4 Radial/Ulnar pulses palpated. 0/5 APB, 5/5 FDI. Negative Finkelsteins, negative CMC grind, positive Durkan's compression. Thenar wasting present. ImaginV X-ray of the right hand taken in office today demonsrate arthritic changes at the thumb CMC, IP and DIP joints, severe. 3V X-ray of the left hand taken in office today demonsrate arthritic changes at the thumb CMC, IP and DIP joints, severe. Impression: 1.) B/L carpal tunnel syndrome, severe Plan: Diagnosis and treatment options were discussed with the patient. The patient has failed conservative treatment and would like to pursue staged endoscopic vs open carpal tunnel release 2 weeks apart. We discussed due to the severe nature of his symptoms surgery is not guaranteed to improve his symptoms and that he may have permanent nerve damage and the primary goal of surgery is to prevent his symptoms from worsening. Risks and benefits of surgery including bleeding, infection, damage to surrounding tissue, need for further surgery, possible need to convert to open procedure, residual numbness were discussed and the patient wished to go forward with surgery with the left sided procedure. -Shaggy Toledo DO Orthopedic Hand/Upper Extremity Surgeon Past Medical History Past Medical History: Atrial Fibrillation, Cancer, GERD/Reflux, Hearing Disorder / Deafness, Hyperlipidemia, Hypertension, Myocardial Infarction (AL), Osteoarthritis (OA), Prostate Disorder Additional Past Medical History / Comment(s): AL x3., BPH., spinal stenosis (receives injections)., hx colon cancer with colectomy (04/2021)., hearing aids. Last Myocardial Infarction Date:: 06/2004 History of Any Multi-Drug Resistant Organisms: None Reported Past Surgical History: Bowel Resection, Heart Catheterization With Stent, Hernia Repair Additional Past Surgical History / Comment(s): Cardiac Stent X1 06/2004., inguinal hernia repair., right colectomy (04/2021) Rt carpal tunnel surgery Past Anesthesia/Blood Transfusion Reactions: No Reported Reaction Date of Last Stent Placement:: 2003 Smoking Status: Never smoker - Past Family History Mother Family Medical History: No Reported History Additional Family Medical History / Comment(s): . Father Family Medical History: No Reported History Medications and Allergies Home Medications Medication Instructions Recorded Confirmed Type Ezetimibe/Simvastatin 0.5 tab PO HS 04/12/21 11/08/22 History [Ezetimibe/Simvastatin 10-40 mg] Famotidine [Pepcid AC] 10 mg PO AC-BRKFST 04/12/21 11/08/22 History Warfarin [Coumadin] 2.5 mg PO MOWEFR 04/12/21 11/08/22 History amLODIPine BESYLATE 5 mg PO HS 04/12/21 11/08/22 History L.acidoph,Paracasei, B.lactis 1 each PO DAILY 05/03/22 11/08/22 History [Probiotic] Losartan Potassium 100 mg PO DAILY 05/03/22 11/08/22 History Multivit-Min/FA/Lycopen/Lutein 1 each PO DAILY 05/03/22 11/08/22 History [Centrum Silver Men Tablet] Warfarin [Coumadin] 5 mg PO SUTUTHSA 05/03/22 11/08/22 History Allergies Allergy/AdvReac Type Severity Reaction Status Date / Time Sulfa (Sulfonamide Allergy Rash/Hives Verified 11/08/22 10:55 Antibiotics) Physical Examination Osteopathic Statement: *. No significant issues noted on an osteopathic structural exam other than those noted in the History and Physical/Consult.
[~2022-11-14 09:14] MED LIST changes: +DEXAMETHASONE SOD PHOSPHATE 4 MG/ML 1 ML VIAL IV ONE; +LIDOCAINE 1% (10MG/ML) FOR IV START INTRADERMA PRN; +ONDANSETRON 4 MG/2 ML VIAL IVP ONE; +Pre Op ABX Message 1 EACH MISC MISCELLANE ONE; +fentaNYL (PF) 50 MCG/ML 2 ML AMP IV PRN
[2022-11-14 09:37] VITALS: TEMP 97.8
[2022-11-14] MEDS ORDERED: fentaNYL (PF) 50 MCG/ML 2 ML AMP ONE (09:43)
[2022-11-14] MEDS ORDERED: MIDAZOLAM 2 MG/2 ML VIAL ONE (09:43)
[2022-11-14] MEDS ORDERED: LIDOCAINE 2% INJ 20 MG/ML (2 ML VIAL) ONE (09:43)
[2022-11-14] MEDS ORDERED: PROPOFOL 10 MG/ML 20 ML VIAL IV ONE (09:43)
[2022-11-14] MEDS ORDERED: BUPIVACAINE (PF) 0.5% 30 ML VIAL SQ ONE (09:51)
[2022-11-14] MEDS ORDERED: LIDOCAINE 1% INJ 10MG/ML (10 ML MDV) SQ ONE (09:51)
--- NOTE | 2022-11-14 10:12 | P.OP ---
Date of Procedure: 11/14/22 Preoperative Diagnosis: Left carpal tunnel syndrome Postoperative Diagnosis: Left carpal tunnel syndrome Procedure(s) Performed: Left endoscopic carpal tunnel release Anesthesia: MAC Surgeon: Shaggy Toledo System Validation Engineer #1: Nile Alcala Estimated Blood Loss (ml): 0 Pathology: none sent Condition: stable Disposition: PACU Description of Procedure: This is a 87 year old male who presents today for a left endoscopic carpal tunnel release after having failed conservative treatment in the past. Risks and benefits of surgery were discussed with the patient including bleeding, damage to surrounding tissue, infection, need to convert to open procedure, need for further surgery as well as risks of anesthesia including pulmonary embolism and even and the patient wished to proceed with surgical intervention. The patients was seen in the pre-operative area by myself. Consent and H&P were completed and updated. The correct extremity was marked in the pre-operative area by myself and all other questions were answered. Operative Narrative: The patient was brought to the operating room by the department of anesthesia. They remained on the portable stretcher and a rolling hand table was brought to the side of the operative extremity. Pre-operative time out was performed indicating the correct patient, procedure and laterality. All in the room agreed. The patient was then drifted off to sleep by the department of anesthesia. MAC anesthesia was utilized and a 50:50 mixture of 1% Lidocaine and 0.5% bupivacaine was injected into the subcutaneous tissues of the palmar skin, 8ccs total. A nonsterile tourniquet was then applied to the operative extremity and the left upper extremity was then prepped and draped in normal sterile fashion. The operative extremity was the exsanguinated with an esmarch bandage and the tourniquet was inflated to 250mmHg. 15 blade scalpel was utilized to make a transverse incision on the palmar skin just ulnar to the palmaris longus tendon at the level of the distal wrist crease. Ragnell retractor was then placed radially and blunt dissection was performed to reveal the distal forearm fascia. This was lifted with fine Román pick ups and Littler tenotomy scissors were then used to open the forearm fascia transversely and a double skin hook was then placed. Hamate finder was placed into the carpal tunnel and then sequential sized dilators were inserted followed by the synovial elevator to separate the flexor tenosynovium from the undersurface of the transverse carpal ligament and a washboard texture was felt. The Micro[employer]ire endoscopic carpal tunnel release system gun was the then inserted into the carpal tunnel hugging the deep portion of the transverse carpal ligament in line with the base of the ring finger. Transverse fibers of the ligament were directly visualized. Pressure was applied on the palm to reveal the distal extent of the transverse carpal ligament. The blade was then deployed and the distal half of the transverse carpal ligament was released. The scope was then brought distal again and remaining transverse fibers were incised with the blade. The proximal half of the transverse carpal ligament was then divided and again the scope was advanced distal and remaining transverse fibers were incised with the blade. The radial and ulnar leaflets were directly visualized and mobile consistent with complete release. Tenotomy scissors were then utilized to release the remaining distal forearm fascia under direct visualization taking care to preserve the palmar cutaneous branch of the median nerve. Skin closure was performed with interrupted 4-0 Monocryl suture followed by Mastisol and steri strips. Sterile dressing was applied consisting of adaptic, 4x4s, Webril, and an monie bandage. Tourniquet was let down and the hand immediately was well perfused. The patient was then woken by the department of anesthesia and transferred to PACU in stable condition. Nile GORDON was present for the case in its entirety and assisted in major portions of the case and protection of vital neurovascular structures. Shaggy Toledo D.O. Orthopedic Hand/Upper Extremity Surgeon
[2022-11-14 10:18] VITALS: RESP 16
[2022-11-14 10:39] VITALS: BP 132/54; PULSE 62
== END 2022-11-14 10:59 | disposition home or self-care (01) ==
LOC: OR 09:14
PROVIDERS: ATTEND Orthopaedic Surgery Hand Surgery
DX: G56.02 Carpal tunnel syndrome, left upper limb (principal); I48.91 Unspecified atrial fibrillation; K21.9 Gastro-esophageal reflux disease without esophagitis; H91.90 Unspecified hearing loss, unspecified ear; I10 Essential (primary) hypertension; E78.5 Hyperlipidemia, unspecified; I25.2 Old myocardial infarction; N40.0 Benign prostatic hyperplasia without lower urinary tract symptoms; M48.00 Spinal stenosis, site unspecified; N42.9 Disorder of prostate, unspecified; I25.10 Atherosclerotic heart disease of native coronary artery without angina pectoris; Z85.038 Personal history of other malignant neoplasm of large intestine; Z90.49 Acquired absence of other specified parts of digestive tract; Z98.84 Bariatric surgery status; Z95.5 Presence of coronary angioplasty implant and graft; Z79.899 Other long term (current) drug therapy; Z88.2 Allergy status to sulfonamides
CPT/HCPCS: 29848; J2250; J1100; J2405; J3010; J2001 ×2; J2704

== ENCOUNTER → 2023-05-21 | Outpatient (CLI) | payer MEDICARE, BC ==
--- NOTE | 2023-05-21 10:15 | XR ---
EXAMINATION TYPE: XR chest 2V DATE OF EXAM: 05/21/2023 COMPARISON: 08/28/2018 HISTORY: Cough TECHNIQUE: Frontal and lateral views of the chest are obtained. FINDINGS: There is no focal air space opacity, pleural effusion, or pneumothorax seen. There is persistent mo derate elevation of the right hemidiaphragm. The cardiac silhouette size is within normal limits. T he osseous structures are intact. IMPRESSION: No acute cardiopulmonary process.P ersistent elevation the right hemidiaphragm.
== END | disposition home or self-care (01) ==
LOC: RADXRMAIN 09:42
PROVIDERS: ATTEND Internal Medicine
DX: J18.9 Pneumonia, unspecified organism (principal); R05.9 Cough, unspecified
CPT/HCPCS: 71046

== ENCOUNTER → 2023-10-31 | Outpatient (CLI) | payer MEDICARE, BC ==
[2023-10-31 15:08] LABS: African American GFR (CKD) >90 (>60 ml/min/1.73 sqM); Blood Urea Nitrogen 11 mg/dL (9-20); Non-African American GFR(CKD) >90 (>60 ml/min/1.73 sqM)
--- NOTE | 2023-10-31 16:00 | CT ---
EXAMINATION TYPE: CT chest abdomen w con DATE OF EXAM: 10/31/2023 COMPARISON: 04/17/2021, chest abdomen and pelvis and CT chest dated 10/30/2021 HISTORY: ENLARGED LYMPH NODES. pt c/o 'lump' on left side near rib cage. denies pain, sob. Technique: CT DLP: 585.5 mGycm. Automated Exposure Control for Dose Reduction was Utilized. Multiple axial images were obtained the chest and abdomen following uneventful administration nonionic IV con trast material. CT chest: There is a persistent band of interstitial density with bronchiectasis in the right upper lobe. There is no suspicious lung mass or nodule. There is no airspace consolidation. There is no pleural effusion or pneumothorax. The great vessels chest are normal with no mediastinal, hilar or axillary adenopathy. No focal osseous lesions are seen. Within the subcutaneous tissues of the left lateral chest wall, there is a 11 mm well-circumscribed soft tissue nodule. It has a relatively benign appearance and possibly represents a sebaceous cyst. I t was seen on the prior study and is stable. CT abdomen: The gallbladder is normal and there is no gallstones or distention. There is no organomegaly or focal mass involving the liver, pancreas, spleen or adrenal glands. There is no solid renal mass or hydronephrosis. Caliber of the abdominal aorta is normal. The bowel loops are normal in caliber and no dilatation obstruction. No free intraperitoneal air-flui d. The osseous structures are intact. IMPRESSION: 1. No acute cardiopulmonary disease. 2. Stable 11 mm soft tissue nodule in the subcutaneous soft tissues of lateral chest wall. 3. Mild chronic interstitial changes in the right upper lobe. 4. No acute changes within the abdomen.
== END | disposition home or self-care (01) ==
LOC: RADCTMAIN 14:14
PROVIDERS: ATTEND Internal Medicine
DX: J84.89 Other specified interstitial pulmonary diseases (principal); M79.89 Other specified soft tissue disorders; R59.9 Enlarged lymph nodes, unspecified
CPT/HCPCS: 82565; 84520; 71260; 74160; 36415; Q9967

== ENCOUNTER → 2023-11-12 | Outpatient (CLI) | payer MEDICARE, BC ==
--- NOTE | 2023-11-16 11:25 | MR ---
EXAMINATION TYPE: MR lumbar spine wo/w con DATE OF EXAM: 11/12/2023 8:29 PM CLINICAL INDICATION:Male, 88 years old with history of R20.0 ANESTHESIA OF SKIN; Low back pain, hernan ess in legs and feet, numbness in both legs COMPARISON: 10/31/2023. TECHNIQUE: Multi planar, multi sequence imaging was performed utilizing: T1-weighted, T2-weighted, a nd turbo inversion recovery imaging of the lumbar spine. IV Contrast: 7 cc Gadavist. (None if empty) FINDINGS: Alignment: The lumbar vertebral bodies have preserved heights with scoliosis alignment. Cord: The conus medullaris and the distal spinal cord appear unremarkable with regards to their signa l intensity and morphology. Bones/Discs: Severe degeneration changes throughout the spine with osteophyte formation and facet yvrose nt arthropathy, disc space narrowing, and Schmorl's nodes,. Extensive degeneration changes throughout the spine worse in the lower spine with scoliosis changes. Multilevel disc desiccation is present. N o abnormal postcontrast enhancement. T12-L1: No evidence of significant spinal canal stenosis or neural foraminal stenosis. L1-L2: Disc bulge and facet joint arthropathy result in mild spinal canal and and moderate to severe bilateral neural foraminal stenosis. L2-L3: Disc bulge and facet joint arthropathy result in mild spinal canal and moderate to severe bila teral bilateral neural foraminal stenosis. L3-L4: Disc bulge and facet joint arthropathy result in severe spinal canal and severe bilateral neur al foraminal stenosis. L4-L5: Disc bulge and facet joint arthropathy result in mild spinal canal and severe bilateral neural foraminal stenosis. L5-S1: Disc bulge and facet joint arthropathy result in mild spinal canal and severe bilateral neural foraminal stenosis. No significant spinal canal or neural foraminal stenosis in the remainder of the visualized levels. Other findings: Simple appearing high T2 signal renal cysts bilaterally. IMPRESSION: 1. Severe degeneration changes of the spine with severe L3-L4 spinal canal stenosis with cauda equin a bunching. 2. Severe facet joint arthropathy with severe L3-L4, L4-L5 and L5-S1 neural foraminal stenosis bilat erally.
== END | disposition home or self-care (01) ==
LOC: RADMRIMAIN 19:27
PROVIDERS: ATTEND Internal Medicine
DX: M51.36 Other intervertebral disc degeneration, lumbar region (principal); M47.817 Spondylosis without myelopathy or radiculopathy, lumbosacral region; M99.73 Connective tissue and disc stenosis of intervertebral foramina of lumbar region; R20.0 Anesthesia of skin
CPT/HCPCS: 72158; A9585

== ENCOUNTER → 2024-02-20 | Outpatient (CLI) | payer MEDICARE, BC ==
[2024-02-20 18:41] LABS: Basophils # (A) 0.05 X 10*3/uL (0.00-0.10); Basophils % (A) 0.7 %; Eosinophils # (A) 0.21 X 10*3/uL (0.04-0.35); Eosinophils % (A) 2.8 %; HCT 45.8 % (39.6-50.0); HGB 14.2 g/dL (13.0-17.0); Lymphocytes # (A) 1.23 X 10*3/uL (0.90-5.00); Lymphocytes % (A) 16.2 %; MCH 30.9 pg (27.0-32.0); MCV 99.8 FL (80.0-97.0); Mean Platelet Volume 10.5 FL (9.5-12.2); Monocytes # (A) 0.69 X 10*3/uL (0.20-1.00); Monocytes % (A) 9.1 %; NRBC Per 100 WBC 0 X 10*3/uL (0.00-0.01); Neutrophils # (A) 5.39 X 10*3/uL (1.80-7.70); Neutrophils % (A) 70.9 %; Platelet Count 186 X 10*3/uL (140-440); RBC 4.59 X 10*6/uL (4.40-5.60); RDW 14.4 % (11.5-14.5); WBC 7.59 X 10*3/uL (4.50-10.00)
[2024-02-20 18:56] LABS: INR 2.12 sec (0.93-1.11); Prothrombin Time 21.8 sec (9.9-11.9)
== END | disposition home or self-care (01) ==
LOC: LABWHC1 12:03
PROVIDERS: ATTEND Internal Medicine Gastroenterology
DX: K92.1 Melena (principal)
CPT/HCPCS: 36415; 85025; 85610

== ENCOUNTER 2024-02-25 10:39 | Day surgery (SDC) | payer MEDICARE, BC ==
[~2024-02-25 10:39] MED LIST changes: -DEXAMETHASONE SOD PHOSPHATE 4 MG/ML 1 ML VIAL IV ONE; -LACTATED RINGERS 1,000 ML IV SCH; -ONDANSETRON 4 MG/2 ML VIAL IVP ONE; -Pre Op ABX Message 1 EACH MISC MISCELLANE ONE; -fentaNYL (PF) 50 MCG/ML 2 ML AMP IV PRN
[2024-02-25 11:59] VITALS: TEMP 97.8
[2024-02-25 12:09] LABS: Glucose,Whole Blood 65 mg/dL (70-110)
[2024-02-25] MEDS: LACTATED RINGERS 1,000 ML IV SCH (12:10)
[2024-02-25] MEDS: DEXTROSE 50% SYRINGE 50 ML IVP STA (12:11)
[2024-02-25] MEDS: IV FLUID CONTINUATION 1,000 ML IV ONE (12:15)
[2024-02-25 12:30] LABS: Glucose,Whole Blood 118 mg/dL (70-110)
[2024-02-25] MEDS ORDERED: PROPOFOL 10 MG/ML 20 ML VIAL IV ONE (12:46)
[2024-02-25] MEDS ORDERED: LIDOCAINE 1% INJ 10MG/ML (20 ML MDV) ONE (12:46)
--- NOTE | 2024-02-25 13:06 | P.PCN ---
Date of Procedure: 02/25/24 Procedure(s) Performed: Brief history: Patient is a pleasant 88-year-old white male scheduled for an elective upper endoscopy as well as colonoscopy as a part of evaluation of abdominal pain and diminished bleeding for the last 3 weeks duration. History of A-fib on Coumadin which is on hold for 5 days. He has by history of colon cancer diagnosed in 2020 and status post colon resection. Procedure performed: Esophagogastroduodenoscopy with biopsy Colonoscopy Preoperative diagnosis: Abdominal pain Intermittent rectal bleeding History of colon cancer diagnosed in 2020 s/p colon resection Anesthesia: MAC Procedure: After informed consent was obtained from the patient was brought into the endoscopy unit and IV sedation was administered by anesthesia under continuous monitoring. Initially upper endoscopy was done. The Olympus GF 160 video endoscope was inserted inserted into the mouth and esophagus intubated without any difficulty and was gradually advanced into the stomach and duodenum and carefully examined. The bulb and second part of the duodenum appeared normal. The scope was then withdrawn into the stomach adequately insufflated with air and upon careful examination the antrum had linear areas of erythema consistent with gastritis and biopsies were done from this area. Mucosa of the body, cardia and fundus appeared normal. The scope was then withdrawn into the esophagus. The GE junction was located at 40 cm to the incisors. It appeared regular with no erythema erosions or ulcerations. Rest of the esophagus appeared normal. Patient tolerated the procedure well. At this time the patient continued to remain sedation. Initial digital rectal examination was normal. Olympus CF 160 video colonoscope was then inserted into the rectum and gradually advanced to the right colon without any difficulty. Careful examination was performed as the scope was gradually being withdrawn. The prep was excellent. The ileocolic anastomosis appeared normal. Mucosa of the transverse colon, descending colon, sigmoid colon and rectum appeared normal. Sigmoid diverticulosis seen. There was some fresh blood noted in the sigmoid colon. Retroflexion was performed in the rectum and grade 2 internal hemorrhoid were noted. Patient tolerated the procedure well. Impression: 1. Upper endoscopy revealed mild antral gastritis but no evidence of esophagitis or peptic ulcer disease 2. Colonoscopy revealed extensive sigmoid diverticulosis and grade 2 internal hemorrhoids. No evidence of colorectal neoplasia Recommendations: Findings of this examination were discussed with the patient as well as his family. He was advised to follow-up with the biopsy results. Continue the high-fiber diet and take fiber supplements on a regular basis. Resume Coumadin today.
[2024-02-25 13:13] VITALS: BP 135/73
[2024-02-25 13:24] LABS: Glucose,Whole Blood 87 mg/dL (70-110)
[2024-02-25 13:27] VITALS: PULSE 62; RESP 15
== END 2024-02-25 13:43 | disposition home or self-care (01) ==
LOC: ORWHC2ENDO 10:39
PROVIDERS: ATTEND Internal Medicine Gastroenterology
DX: K29.50 Unspecified chronic gastritis without bleeding (principal); K64.1 Second degree hemorrhoids; K57.30 Diverticulosis of large intestine without perforation or abscess without bleeding; I48.91 Unspecified atrial fibrillation; I10 Essential (primary) hypertension; E78.5 Hyperlipidemia, unspecified; I25.2 Old myocardial infarction; N40.0 Benign prostatic hyperplasia without lower urinary tract symptoms; G47.33 Obstructive sleep apnea (adult) (pediatric); Z79.01 Long term (current) use of anticoagulants; Z85.038 Personal history of other malignant neoplasm of large intestine; Z90.49 Acquired absence of other specified parts of digestive tract; Z79.899 Other long term (current) drug therapy; Z88.2 Allergy status to sulfonamides; Z95.5 Presence of coronary angioplasty implant and graft
CPT/HCPCS: 88305; 45378; 43239; J2001; J2704

== ENCOUNTER → 2024-10-05 | Outpatient (CLI) | payer MEDICARE, BC ==
[2024-10-05 14:02] LABS: African American GFR (CKD) >90 (>60 ml/min/1.73 sqM); Blood Urea Nitrogen 12 mg/dL (9-20); Non-African American GFR(CKD) 81 (>60 ml/min/1.73 sqM)
--- NOTE | 2024-10-05 15:41 | CT ---
EXAMINATION TYPE: CT abdomen pelvis w con CT DLP: 662.1 mGycm, Automated exposure control for dose reduction was used. DATE OF EXAM: 10/05/2024 3:05 PM COMPARISON: CT chest abdomen 10/31/2023, CT urogram 08/17/2022, CT chest abdomen pelvis 04/17/2021, CT abdomen and pelvis 11/29/2020 CLINICAL INDICATION:Male, 88 years old with history of R10.31 RLQ pain; rlq pain/hx colon ca TECHNIQUE: Standard CT of the abdomen and pelvis following the administration of 100 cc of Isovue 3 00 IV contrast material and oral contrast. Coronal and sagittal reformats were performed. FINDINGS: LOWER CHEST: Posterior subsegmental atelectasis is noted. Elevation of the right hemidiaphragm. Moder ate to severe coronary artery calcifications. Stable 1.2 cm nodule within the left lateral chest wall subcutaneous tissues. ABDOMEN LIVER: No focal lesion. GALLBLADDER AND BILE DUCTS: Unremarkable. PANCREAS: Unremarkable. SPLEEN: Unremarkable. ADRENAL GLANDS: Unremarkable. KIDNEYS AND URETERS: No evidence of hydronephrosis or renal calculus. The kidneys enhanced symmetrica lly. Prominent bilateral extrarenal pelvises. Bilateral renal cortical cysts with largest in the infe rior pole of the right kidney measuring up to 2.9 cm and largest within the anterior mid left kidney measuring up to 2.2 cm. Contrast is demonstrated within both collecting systems on the delayed phase. PELVIS BLADDER: Unremarkable REPRODUCTIVE: Coarse calcifications of the prostate gland are identified. Enlarged prostate measures 6.7 cm in transverse dimension. ABDOMEN & PELVIS STOMACH AND BOWEL: Periampullary duodenal diverticulum.Enteric contrast reaches the transverse colon. Distal colonic diverticulosis without evidence for acute diverticulitis. No evidence of bowel obstru ction. PERITONEUM: No evidence of pneumoperitoneum or free fluid. VASCULATURE: No evidence of aortic aneurysm. Tortuosity of the abdominal aorta. Mild atherosclerotic calcification of the aorta and its branches. MUSCULOSKELETAL: No acute osseous abnormalities. Advanced multilevel degenerative disc disease. Dextr o sclerotic curvature of the lumbar spine. LYMPH NODES: No evidence for lymphadenopathy. SOFT TISSUE/ABDOMINAL WALL: Postsurgical changes from left into a hernia repair with mesh anchors. IMPRESSION: 1. No CT evidence for acute abdominal/pelvic process. 2. Colonic diverticulosis without evidence for acute diverticulitis. 3. Dextro scoliotic curvature of the lumbar spine with advanced degenerative disc disease. 4. Marked prostatomegaly. Correlate with PSA values. [facility], , 10/05/2024 3:39 PM
== END | disposition home or self-care (01) ==
LOC: RADCTMAIN 13:05
PROVIDERS: ATTEND Internal Medicine
DX: K57.30 Diverticulosis of large intestine without perforation or abscess without bleeding (principal); M51.369 Other intervertebral disc degeneration, lumbar region without mention of lumbar back pain or lower extremity pain; N40.0 Benign prostatic hyperplasia without lower urinary tract symptoms; M41.86 Other forms of scoliosis, lumbar region
CPT/HCPCS: 82565; 84520; 74177; 36415; Q9967